=== PATIENT | male | born 1965 | race Caucasian/White ===

== ENCOUNTER → 2022-01-26 10:23 | Outpatient (CLI) | payer OTHER, SELFPAY ==
[2022-01-26 11:38] LABS: COVID19 -Nasal RAPID Negative (Negative)
== END ==
PROVIDERS: Visit Provider Family Medicine Sleep Medicine
DX: Z20.822 Contact with and (suspected) exposure to COVID-19 (principal)
CPT/HCPCS: 87635; C9803

== ENCOUNTER 2022-01-29 08:44 | Day surgery (SDC) | payer OTHER, SELFPAY ==
[2022-01-29 09:36] VITALS: BP 147/82; PULSE 59; RESP 16; TEMP 36; O2SAT 98
[2022-01-29] MEDS: SODIUM CHLORIDE 0.9% 1,000 ML 84 ML IV (09:38)
--- NOTE | 2022-01-29 10:26 | PM.HP.1 ---
History of Present Illness History of Present Illness Date Patient Seen: 01/29/22 Time Patient Seen: 10:26 Chief complaint: SDC Narrative: Here for colon cancer screening. I reviewed the note from Dr. Maynard. No changes Patient History Medical History Heartburn Rotator cuff arthropathy of right shoulder Surgical History History of lumbar surgery Family & Social History Social History: household members spouse Tobacco & Substance use: Smoking Status Never smoker alcohol intake current alcohol intake frequency holiday/special occasion Substance Use Type does not use Meds Home Medications and Allergies Home Medications Medication Instructions Recorded Confirmed Type acetaminophen 325 mg tablet 325 mg PO Q6H PRN 01/29/22 01/29/22 History ibuprofen 600 mg tablet 600 mg PO Q6H PRN 01/29/22 01/29/22 History Allergies Allergy/AdvReac Type Severity Reaction Status Date / Time No Known Drug Allergies Allergy Verified 01/29/22 09:12 Review of Systems Review of Systems ROS: Yes All systems reviewed with the patient and are negative except as otherwise documented Exam Vital Signs (past 8 hours): - 01/29/22 09:36 Temperature 96.8 F L Pulse Rate 59 L Respiratory Rate 16 Blood Pressure 147/82 H Pulse Oximetry 98 Oxygen Delivery Method Room Air Const General: cooperative and comfortable Orientation: alert HENMT Head: normocephalic Ears: external ears normal Nose: external nose normal Face and sinus: normal facial exam Mouth: oral mucosae normal Eyes General: appearance normal, both eyes and all related structures Neck Neck: normal visual inspection Chest Chest: normal inspection of the chest Resp Effort & Inspection: normal respiratory effort Cardio Rate: regular rate GI Inspection: normal to inspection Skin General: no rashes or lesions noted and No jaundice Neuro General: patient alert and moves all extremities Cognition: normal cognition Speech: speech normal Extrem General: no pedal edema Psych Appearance: grossly normal Assessment & Plan Assessment & Plan narrative: 56-year-old male indicated for colon cancer screening. Colonoscopy is pursued today. Time Spent With Patient Critical Care time: I spent a total of [] minutes of critical care time on this patient's care today; this time is exclusive of procedural time.
--- NOTE | 2022-01-29 10:28 | PM.PREOP ---
Pre-operative Note COVID-19 COVID-19 status: Negative Result date/Date tested (Pos, Neg/Pending): 01/26/22 Criteria for continued procedure: Possibility delay results in more complex future surgery or treatment Interval Note History & Physical reviewed/Exam performed by Physician: Yes Changes to H&P: No ASA Class (for procedural sedation): I
--- NOTE | 2022-01-29 11:35 | PM.OP.COLON ---
Operative Date/Time/Diagnoses Date of procedure: 01/29/22 Time of procedure: 11:36 Pre-op diagnosis: Colon cancer screening Post-op diagnosis: same Procedure & Clinicians Study performed: Colonoscopy Same procedure as scheduled: Yes Indications: Colon cancer screening Surgeon: Heber Ramos Procedure Notes SCOAP/Timeout: Done Procedure in detail: After the risks and benefits were explained, written and verbal informed consent was obtained. The patient was brought into the procedure room and placed into the left lateral decubitus position. Please see nurse supervisor electronics testing note for sedation details. Digital rectal examination was accomplished. The scope was introduced into the patient and advanced under direct visualization to the cecum as identified by the appendiceal orifice and ileocecal valve. The scope was slowly withdrawn to carefully examine the mucosa for any defects or lesions. Comprehensive imaging was accomplished throughout the rectum including the dentate line. The colon was decompressed, the scope was then removed from the patient who tolerated the procedure well. Bowel prep adequate Adult colonoscope Scope withdrawal time: 8 minutes Sedation minutes: 20 Specimen(s): none sent Complications: none Impression: No significant polyps mass lesions or inflammatory features identified throughout. Endoscopic diagnosis Visually normal colonoscopy Post-procedure Recommendations: Colonoscopy in 10 years Plan for aftercare: Repeat colonoscopy 10 years time; sooner should symptoms warrant an earlier exam. Disposition: PACU
[2022-01-29 11:37] VITALS: BP 115/85; PULSE 82; RESP 16; TEMP 36.6; O2SAT 99
[2022-01-29 11:42] VITALS: BP 122/84; PULSE 81; RESP 16; O2SAT 99
--- NOTE | 2022-01-29 11:46 | SUR.PHASEI ---
Stable pacu stay.
[2022-01-29 11:48] VITALS: BP 136/87; PULSE 66; RESP 14; TEMP 36.8; O2SAT 96
[2022-01-29 11:53] VITALS: BP 127/87; PULSE 61; RESP 16; TEMP 36.8; O2SAT 99
== END 2022-01-29 12:10 | disposition home or self-care (01) ==
PROVIDERS: PCP Student in an Organized Health Care Education/Training Program; Referring Provider Internal Medicine Gastroenterology; Visit Provider Internal Medicine Gastroenterology
PROC: 0DJD8ZZ Inspection of Lower Intestinal Tract, Via Natural or Artificial Opening Endoscopic (ICD-10-PCS; CPT 45378; principal; 2022-01-29 10:00)
DX: Z12.11 Encounter for screening for malignant neoplasm of colon (principal)
CPT/HCPCS: 45378; J2704

== ENCOUNTER 2022-02-11 11:32 | Inpatient (IN) | payer OTHER, SELFPAY ==
[2022-02-11] VITALS (17 sets, daily range): BP systolic 113–163; BP diastolic 62–94; PULSE 72–95; RESP 7–23; TEMP 36.1–37.2; O2SAT 96–100; BMI 30.8
--- NOTE | 2022-02-11 | DI.RAD.S_ITS ---
PROCEDURE: XR SHOULDER LT MIN 2V INDICATIONS: TRAUMA TECHNIQUE: 2 views of the shoulder were acquired. COMPARISON: [facility], CT, CT CHEST ABD PEL W CON, 02/11/2022, 12:26. [facility], CR, XR HUMERUS LT 2V, 02/11/2022, 12:19. FINDINGS: Bones: There is a moderately displaced, impacted fracture of the left humeral neck. There is a prominently displaced, impacted, angulated fracture of the left humeral mid shaft. No additional fractures are detected. The visualized ribs appear intact. No dislocations. No suspicious bony lesions. Visualized ribs appear intact. Soft tissues: No suspicious soft tissue calcifications. The visualized lung demonstrates an unremarkable appearance. IMPRESSION: Moderately displaced, impacted fracture of the left humeral neck. Prominently displaced, comminuted, angulated fracture of the left humeral mid shaft. Dictated by: Matias Kuhn M.D. on 02/11/2022 at 11:58 Approved by: Matias Kuhn M.D. on 02/11/2022 at 11:59
--- NOTE | 2022-02-11 11:54 | ED_ITS ---
HPI - General Adult General Chief complaint: Trauma Stated complaint: fell off ladder Time Seen by Provider: 02/11/22 11:51 Source: patient Mode of arrival: Ambulatory History of Present Illness HPI narrative: 56-year-old male who arrived to the emergency department by private vehicle for evaluation of injuries that he sustained when he fell approximately 15 ft off of a ladder. He did hurt his left arm. Sore short appeared of time he did have left hip discomfort but this has improved. He did not lose conscious. Did not hit his head. Said deformity to his left arm. Was able to stand up and walk back into the house afterwards. He is not on blood thinners. Currently reports pain in his left arm and also in his midback. Cervical collar was placed on triage. He reports no chest pain. No shortness of breath. No abdominal pain. No dental pain. No vision changes. No current hip pain. No leg pain. Related Data Home Medications Medication Instructions Recorded Confirmed acetaminophen 325 mg tablet 325 mg PO Q6H PRN 01/29/22 02/11/22 ibuprofen 600 mg tablet 600 mg PO Q6H PRN 01/29/22 02/11/22 Allergies Allergy/AdvReac Type Severity Reaction Status Date / Time No Known Drug Allergies Allergy Verified 01/29/22 09:12 Review of Systems Review of Systems ROS Unobtainable: All systems reviewed & are unremarkable except as noted in HPI and below Patient History Medical History Heartburn Rotator cuff arthropathy of right shoulder Surgical History History of lumbar surgery Social History household members: spouse Smoking Status: Never smoker alcohol intake: current Smoking Status: Never smoker alcohol intake frequency: holidays/special occasions only Substance Use Type: does not use Exam Initial Vital Signs Initial Vital Signs: Vital Signs Temperature 98.7 F 02/11/22 11:35 Pulse Rate 90 02/11/22 11:35 Respiratory Rate 20 02/11/22 11:35 Blood Pressure 163/94 H 02/11/22 11:35 Pulse Oximetry 100 02/11/22 11:35 Const General: healthy appearing, well developed and No ill appearing HENAZ Head: normal to inspection and normocephalic Face and sinus: normal facial exam Mouth: oral mucosae normal Eyes Pupils: PERRL EOM: EOM intact bilaterally Chest Chest: No crepitus and No tenderness Resp Effort & Inspection: normal respiratory effort Auscultation: clear to auscultation bilaterally Cardio Rate: regular rate Rhythm: regular rhythm GI Inspection: normal to inspection Palpation: soft and No tender Back/Spine/Pelvis Cervical Spine: cervical spinal tenderness Thoracic/Lumbar Spine: thoracic spinal tenderness and No lumbar spinal tenderness Skin General: no rashes or lesions noted Neuro General: patient alert, patient awake and patient oriented x3 Extrem Other: Pelvis is stable. Right upper extremity is unremarkable. Bilateral lower extremities unremarkable. Has obvious deformity to mid shaft left humerus. He has left wrist is unremarkable. Psych Appearance: grossly normal and well kempt Procedures Orthopedic Splinting/Casting Injury #1: Side: left Upper Extremity Injury Location: upper arm Upper Extremity Immobilizer: sugar tong splint Post splinting neuro exam: no change Post splinting vascular exam: no change Placed by: Nursing Scores GCS [place] coma scale eye opening: Spontaneous [place] coma scale verbal response: Orientated [place] coma scale motor response: Obey commands [place] coma scale total score: 15 Course Orders Ordered: ED Orders 02/11/22 11:52 Basic Metabolic Panel Stat Complete Blood Count AUTO DIFF Stat Lipase Stat 02/11/22 11:57 CT cervical spine wo con Stat CT chest abd pel w con Stat CT head/brain wo con Stat 02/11/22 11:58 XR humerus LT 2V Stat 02/11/22 13:08 Consult to Orthopedic Surgery Stat 02/11/22 13:15 CT UE LT wo con Stat 02/11/22 14:50 COVID19 -Nasal RAPID/Pre-Proc Stat Acetaminophen (Acetaminophen 325 Mg Tablet) 650 mg PO Q6HR PRN PRN Reason: pain Cyclobenzaprine HCl (Cyclobenzaprine 10 Mg Tablet) 10 mg PO Q8HR PRN PRN Reason: Spasms Enoxaparin Sodium (Enoxaparin 40 Mg/0.4 Ml Syringe) 40 mg SUBCUT DAILY BETO Hydromorphone HCl (Hydromorphone 0.5 Mg Inj) 1 mg IV Q3H PRN PRN Reason: Breakthrough pain only (8-10) Last Admin: 02/11/22 18:21 Dose: 1 mg Documented by: PHYLLIS Ibuprofen (Ibuprofen 600 Mg Tablet) 600 mg PO Q6HR PRN PRN Reason: pain Naloxone HCl (Naloxone 0.4 Mg/Ml Vial) 0.2 mg IV Q2MIN PRN PRN Reason: Opiate Reversal Ondansetron HCl (Ondansetron 4 Mg/2 Ml Inj) 4 mg IV Q8HR PRN PRN Reason: Nausea And Vomiting Last Admin: 02/11/22 18:12 Dose: 4 mg Documented by: PHYLLIS Oxycodone HCl (Oxycodone Ir 5 Mg Tablet) 5 mg PO Q4HR PRN PRN Reason: Pain, Moderate (4-6) Last Admin: 02/11/22 16:39 Dose: 5 mg Documented by: PHYLLIS Discontinued Medications Hydromorphone HCl (Hydromorphone 1 Mg Inj) 1 mg IV NOW ONE Stop: 02/11/22 12:36 Last Admin: 02/11/22 12:40 Dose: 1 mg Documented by: NATI Hydromorphone HCl (Hydromorphone 0.5 Mg Inj) 0.5 mg IV Q4H PRN PRN Reason: Breakthrough pain only (8-10) Morphine Sulfate (Morphine 4 Mg/Ml Inj) 4 mg IV NOW ONE Stop: 02/11/22 11:56 Last Admin: 02/11/22 12:03 Dose: 4 mg Documented by: NATI Morphine Sulfate (Morphine 4 Mg/Ml Inj) 4 mg IV NOW ONE Stop: 02/11/22 12:11 Last Admin: 02/11/22 12:25 Dose: 4 mg Documented by: NATI Ondansetron HCl (Ondansetron 4 Mg/2 Ml Inj) 4 mg IV NOW ONE Stop: 02/11/22 11:56 Last Admin: 02/11/22 12:03 Dose: 4 mg Documented by: NATI Ondansetron HCl (Ondansetron 4 Mg/2 Ml Inj) 4 mg IV NOW ONE Stop: 02/11/22 13:10 Last Admin: 02/11/22 13:15 Dose: 4 mg Documented by: NATI Vital Signs Vital signs: Vital Signs - 8 hr 02/11/22 11:35 02/11/22 12:16 02/11/22 12:46 Temperature 98.7 F Pulse Rate 90 94 H 90 Respiratory Rate 20 23 Blood Pressure 163/94 H Pulse Oximetry 100 100 100 02/11/22 12:47 02/11/22 13:00 02/11/22 13:15 Temperature Pulse Rate 89 83 94 H Respiratory Rate 12 10 L 13 Blood Pressure 131/71 119/65 125/78 Pulse Oximetry 100 99 100 02/11/22 13:41 02/11/22 13:42 02/11/22 13:45 Temperature Pulse Rate 84 86 80 Respiratory Rate 13 17 8 L Blood Pressure 116/64 116/63 Pulse Oximetry 100 100 99 02/11/22 14:00 02/11/22 14:15 Temperature Pulse Rate 91 H 95 H Respiratory Rate 13 12 Blood Pressure 119/62 121/66 Pulse Oximetry 98 99 Medical Decision Making Lab Data Lab results reviewed: Yes I reviewed the patient's lab results. Result diagrams: 02/11/22 11:52 02/11/22 11:52 Labs: Lab Results 02/11/22 02/11/22 Range/Units 11:52 11:52 WBC 8.5 (4.5-11.0) X10^3/uL RBC 4.89 (4.5-5.9) X10^6/uL Hgb 15.3 (13.5-17.5) g/dL Hct 44.7 (41-53) % MCV 91.5 (80-100) fL MCH 31.3 (26-34) PG MCHC 34.2 (30-36) % RDW 12.8 (11.6-14.8) % Plt Count 250 (150-400) X10^3/uL Neut % (Auto) 52.5 (50-75) % Lymph % (Auto) 40.5 H (25-40) % [place] % (Auto) 5.8 (3-14) % Eos % (Auto) 0.6 L (2-4) % Baso % (Auto) 0.6 (0-2) % Neut # (Auto) 4500 (8262-7111) /uL Lymph # (Auto) 3500 (5893-2950) /uL [place] # (Auto) 500 (0-900) /uL Eos # (Auto) 100 (0-450) /uL Baso # (Auto) 0 (0-100) /uL Sodium 141 (137-145) mmol/L Potassium 3.3 L (3.4-5.1) mmol/L Chloride 104 (98-107) mmol/L Carbon Dioxide 21 L (22-32) mmol/L BUN 19 (9-20) mg/dL Creatinine 1.14 (0.66-1.25) mg/dL Estimated GFR > 60 (>60) mL/min BUN/Creatinine Ratio 16.7 (6-22) Glucose 164 H (70-100) mg/dL Calcium 9.7 (8.4-10.2) mg/dL Lipase 138 (23-300) U/L Imaging Data CT chest/abd/pelvis: Radiologist's Impression: [address] [address] [address] Scan Report Signed Patient: Serjio Aguirre MR#: [id number] : 1965 Acct:[id number] Age/Sex: 56 / M Date of Service: 02/11/22 Loc: ED Accession Number: [id number] ?? Procedure: CT chest abd pel w con Ordering Provider: Олег Morgan D.O. PROCEDURE:? CT CHEST ABD PEL W CON ? INDICATIONS:? fall 15 feet off ladder with mid thoracic back pain ? TECHNIQUE:? After the administration of intravenous contrast, 5 mm thick sections acquired from the lung apices to the symphysis.? 2.5 mm thick coronal and sagittal reformats were acquired. ?Additional 7 mm thick coronal maximum intensity projection (MIP) reformats acquired through the lungs.? Optional 10-minute delayed imaging may be performed from the kidneys to the bladder.? For radiation dose reduction, the following was used:? automated exposure control, adjustment of mA and/or kV according to patient size.? ? COMPARISON:? [facility], CR, XR SHOULDER LT MIN 2V, 02/11/2022, 12:27.? [facility], CT, CT CERVICAL SPINE WO CON, 02/11/2022, 12:26.? [facility], CT, CT HEAD/BRAIN WO CON, 02/11/2022, 12:26. ? FINDINGS:? Image quality:? There is streak artifact seen through the upper abdomen. ? CHEST:? Lungs:? No pulmonary contusions or lacerations.? No acute airspace opacities.? No pneumothorax or hemothorax.? Central and peripheral airways appear patent and normal in caliber.? ? Mediastinum:? No mediastinal hematomas.? Heart size is normal.? No pericardial effusion.? Thoracic aorta and pulmonary arteries demonstrate normal size and enhancement.? No mediastinal or hilar adenopathy.? Esophagus is normal in caliber.? No hiatal hernia.? ? Chest wall:? There is partial visualization of an impacted left humeral neck fracture. ? No rib fractures.? No subcutaneous emphysema.? No axillary or supraclavicular ad enopathy. ?Thyroid gland demonstrates no significant abnormality.? ? ? ABDOMEN:? Solid organs:? Liver is normal in size and enhancement, without lacerations.? Diffuse fatty liver infiltration is noted.? Gallbladder wall is not thickened.? Biliary system is non-dilated.? Pancreas enhances normally, without transection.? Spleen is normal in size and enhancement, without lacerations.? No adrenal hematomas.? Both kidneys enhance normally, without hydronephrosis or lacerations.? Within the mid right kidney, there is a lesion seen that measures 20 Hounsfield units and 1.6 cm. ? Peritoneum and bowel:? No free fluid or air.? Unenhanced bowel loops demonstrate normal wall thickness and caliber.? Fatty stranding can be seen within the mesentery, as on series 2, image 92. ? Nodes and vessels:? No retroperitoneal or mesenteric adenopathy.? Borderline prominent mesenteric lymph nodes are seen.? Aorta and inferior vena cava are normal in size and enhancement.? ? Miscellaneous:? No ventral hernias.? ? ? PELVIS:? Genitourinary:? Bladder wall thickness is normal.? ? Miscellaneous:? No inguinal hernias or adenopathy.? ? Bones:? Pelvic ring and hip joints appear intact.? No vertebral compression frac tures.? L4-L5 and L5-S1 artificial discs have been previously placed, without findings of failure or loosening. ? ? IMPRESSION:? Left humeral neck fracture. ? No additional bony fracture can be seen. ? No solid organ injury is identified. ? Mesenteric fatty stranding and borderline prominent mesenteric lymph nodes are seen.? This is nonspecific, although is attributed to chronic inflammatory change. ? Within the mid right kidney, there is a likely hyperdense cyst seen measuring up to 1.6 cm.? Please consider a follow-up renal ultrasound for further evaluation/confirmation. ? ? Incidental note is made of: Fatty liver infiltration Lower lumbar spine artificial discs ? Dictated by: Matias Kuhn M.D. on 02/11/2022 at 11:50 ? ? Approved by: Matias Kuhn M.D. on 02/11/2022 at 11:56? CT - cervical spine: Radiologist's Impression: [place] [address] CT Scan Report Signed Patient: Serjio Aguirre MR#: [id number] : 1965 Acct:[id number] Age/Sex: 56 / M Date of Service: 02/11/22 Loc: ED Accession Number: [id number] ?? Procedure: CT cervical spine wo con Ordering Provider: Олег Morgan D.O. PROCEDURE:? CT CERVICAL SPINE WO CON ? INDICATIONS:? fall 15 feet off ladder ? TECHNIQUE:? Noncontrast 3 mm thick sections acquired from the skull base to the T4 level.? Sagittal and coronal reformats were then constructed.? For radiation dose reduction, the following was used:? automated exposure control, adjustment of mA and/or kV according to patient size.? ? COMPARISON:? [facility], CT, CT CHEST ABD PEL W CON, 02/11/2022, 12:26.? [facility], CT, CT HEAD/BRAIN WO CON, 02/11/2022, 12:26. ? FINDINGS:? Image quality:? This examination is somewhat limited by quantum mottle artifact.? ? Bones:? No fractures or dislocations.? Visualized superior ribs are intact. ? Focal C5-C6 degenerative change is seen, with [id number] disc space narrowing with associated endplate irregularity and sclerosis.? Focal calcification is seen posterior to disc level, with moderate central canal narrowing.? Milder degenerative changes are seen elsewhere.? ? ? Soft tissues:? Prevertebral soft tissues are normal in thickness.? No paravertebral hematomas.? No apical pneumothoraces.? ? ? IMPRESSION:? Negative for acute fracture. ? Focal C5-C6 degenerative change. ? ? ? Dictated by: Matias Kuhn M.D. on 02/11/2022 at 11:49 ? ? Approved by: Matias Kuhn M.D. on 02/11/2022 at 11:50 CT scan - head: Radiologist's Impression: [address] [address] [address] Scan Report Signed Patient: Serjio Aguirre MR#: [id number] : 1965 Acct:[id number] Age/Sex: 56 / M Date of Service: 02/11/22 Loc: ED Accession Number: [id number] ?? Procedure: CT head/brain wo con Ordering Provider: Олег Morgan D.O. PROCEDURE:? CT HEAD/BRAIN WO CON ? INDICATIONS:? fall 15 feet off ladder ? TECHNIQUE:? Noncontrast 4.5 mm thick angled axial sections acquired from the foramen magnum to the vertex, with coronal and sagittal reformats.? For radiation dose reduction, the following was used:? automated exposure control, adjustment of mA and/or kV according to patient size.? ? COMPARISON:? [facility], CT, CT CERVICAL SPINE WO CON, 02/11/2022, 12:26. ? FINDINGS:? Image quality:? Excellent.? ? CSF spaces:? Basal cisterns are patent.? No extra-axial fluid collections.? Ventricles are normal in size and shape.? ? Brain:? No midline shift.? No intracranial masses or hemorrhage.? Frost-white matter interface is normal.? ? Skull and face:? Calvarium and visualized facial bones are intact, without s uspicious lesions.? ? Sinuses:? Visualized sinuses and mastoids are clear.? IMPRESSION:? No acute intracranial hemorrhage is seen.? ? No acute intracranial process is seen.? ? ? Dictated by: Matias Kuhn M.D. on 02/11/2022 at 11:47 ? ? Approved by: Matias Kuhn M.D. on 02/11/2022 at 11:48 Extremity x-ray #1: Radiologist's Impression: [address] [address] XRay Report Signed Patient: Serjio Aguirre MR#: [id number] : 1965 Acct:[id number] Age/Sex: 56 / M Date of Service: 02/11/22 Loc: ED Accession Number: [id number] ?? Procedure: XR humerus LT 2V Ordering Provider: Олег Morgan D.O. PROCEDURE:? XR HUMERUS LT 2V ? INDICATIONS:? fall off ladder with mid shaft deformity ? TECHNIQUE:? 2 views of the humerus were acquired.? ? COMPARISON:? [facility], CR, XR SHOULDER LT MIN 2V, 02/11/2022, 12:27.? [facility], CT, CT CHEST ABD PEL W CON, 02/11/2022, 12:26. ? FINDINGS:? ? Bones:? There is a prominently displaced comminuted fracture of the left humeral mid shaft, with moderate angulation.? There is also a moderately displaced left humeral neck fracture, with impaction. ? No dislocation is seen. ? Soft tissues:? Soft tissue swelling is seen. ? ? ? IMPRESSION:? There is a prominently displaced, comminuted, angulated fracture of the humeral mid shaft. ? An additional moderately displaced impacted fracture of the left humeral neck can be seen. ? ? Dictated by: Matias Kuhn M.D. on 02/11/2022 at 11:56 ? ? Approved by: Matias Kuhn M.D. on 02/11/2022 at 11:58?? CT UE: Radiologist's Impression: [place] [address] CT Scan Report Signed Patient: Serjio Aguirre MR#: [id number] : 1965 Acct:[id number] Age/Sex: 56 / M Date of Service: 02/11/22 Loc: ED Accession Number: [id number] ?? Procedure: CT UE LT wo con Ordering Provider: Олег Morgan D.O. PROCEDURE:? CT UE LT WO CON ? INDICATIONS:? Shoulder and humerus fracture ortho requested CT ? TECHNIQUE:? Noncontrast 1-1.5 mm thick sections acquired from the acromioclavicular joint to the inferior scapula, with coronal and sagittal reformatting.? ? COMPARISON:? [facility], CR, XR SHOULDER LT MIN 2V, 02/11/2022, 12:27. ? FINDINGS:? Image quality:? Excellent.? ? Bones:? As seen by plain film, there is a moderately displaced and angulated fracture of the mid humeral shaft.? Additionally, there is a mildly displaced comminuted fracture of the humeral head and neck ? Soft tissues:? Grossly unremarkable? ? IMPRESSION:? Humeral fractures as above. ? ? Dictated by: Andrew Walls M.D. on 02/11/2022 at 13:57 ? ? Approved by: Andrew Walls M.D. on 02/11/2022 at 13:58? MDM Narrative Medical decision making narrative: Patient fell 15 ft from a ladder. Obvious deformity to the left humerus and does have a midshaft humeral fracture. Also has a left proximal humerus fracture. Rest of his radiologic studies and exam is unremarkable. Patient not hypotensive. Alert oriented x3. Neurovascularly intact in left upper extremity. He was placed in a splint for comfort. Discussed the case with Dr. Alvarado orthopedic surgery who recommended patient be admitted to medicine service. Discussed case Dr. Bhatti who will admit for further evaluation treatment. I did discuss the findings of the CT scans with the patient the need for admission. He expressed understanding and agreement. Critical Care Time Critical Care Time Critical Care Time: Yes Total Critical Care Time: 35 Attestation: The high probability of a clinically significant, sudden or life threatening deterioration of the neurologic, cardiovascular, musculoskeletal system(s) required my full and direct attention, intervention and personal management. The aggregate critical care time was [30] minutes. This time is in addition to time spent performing reported procedures but includes the following: [x] Data Review and interpretation [x] Patient assessment and monitoring of vital signs [x] Documentation [x] Medication orders and management Discharge Plan Departure Patient Disposition: Admitted As Inpatient Clinical Impression: Closed fracture of left proximal humerus, Closed fracture of shaft of left humerus Admit Date/Time: 02/11/22 14:27 Admit Provider: Bryan Bhatti
--- NOTE | 2022-02-11 11:57 | DI.CT.S_ITS ---
PROCEDURE: CT CHEST ABD PEL W CON INDICATIONS: fall 15 feet off ladder with mid thoracic back pain TECHNIQUE: After the administration of intravenous contrast, 5 mm thick sections acquired from the lung apices to the symphysis. 2.5 mm thick coronal and sagittal reformats were acquired. Additional 7 mm thick coronal maximum intensity projection (MIP) reformats acquired through the lungs. Optional 10-minute delayed imaging may be performed from the kidneys to the bladder. For radiation dose reduction, the following was used: automated exposure control, adjustment of mA and/or kV according to patient size. COMPARISON: [facility], CR, XR SHOULDER LT MIN 2V, 02/11/2022, 12:27. [facility], CT, CT CERVICAL SPINE WO CON, 02/11/2022, 12:26. [facility], CT, CT HEAD/BRAIN WO CON, 02/11/2022, 12:26. FINDINGS: Image quality: There is streak artifact seen through the upper abdomen. CHEST: Lungs: No pulmonary contusions or lacerations. No acute airspace opacities. No pneumothorax or hemothorax. Central and peripheral airways appear patent and normal in caliber. Mediastinum: No mediastinal hematomas. Heart size is normal. No pericardial effusion. Thoracic aorta and pulmonary arteries demonstrate normal size and enhancement. No mediastinal or hilar adenopathy. Esophagus is normal in caliber. No hiatal hernia. Chest wall: There is partial visualization of an impacted left humeral neck fracture. No rib fractures. No subcutaneous emphysema. No axillary or supraclavicular adenopathy. Thyroid gland demonstrates no significant abnormality. ABDOMEN: Solid organs: Liver is normal in size and enhancement, without lacerations. Diffuse fatty liver infiltration is noted. Gallbladder wall is not thickened. Biliary system is non-dilated. Pancreas enhances normally, without transection. Spleen is normal in size and enhancement, without lacerations. No adrenal hematomas. Both kidneys enhance normally, without hydronephrosis or lacerations. Within the mid right kidney, there is a lesion seen that measures 20 Hounsfield units and 1.6 cm. Peritoneum and bowel: No free fluid or air. Unenhanced bowel loops demonstrate normal wall thickness and caliber. Fatty stranding can be seen within the mesentery, as on series 2, image 92. Nodes and vessels: No retroperitoneal or mesenteric adenopathy. Borderline prominent mesenteric lymph nodes are seen. Aorta and inferior vena cava are normal in size and enhancement. Miscellaneous: No ventral hernias. PELVIS: Genitourinary: Bladder wall thickness is normal. Miscellaneous: No inguinal hernias or adenopathy. Bones: Pelvic ring and hip joints appear intact. No vertebral compression fractures. L4-L5 and L5-S1 artificial discs have been previously placed, without findings of failure or loosening. IMPRESSION: Left humeral neck fracture. No additional bony fracture can be seen. No solid organ injury is identified. Mesenteric fatty stranding and borderline prominent mesenteric lymph nodes are seen. This is nonspecific, although is attributed to chronic inflammatory change. Within the mid right kidney, there is a likely hyperdense cyst seen measuring up to 1.6 cm. Please consider a follow-up renal ultrasound for further evaluation/confirmation. Incidental note is made of: Fatty liver infiltration Lower lumbar spine artificial discs Dictated by: Matias Kuhn M.D. on 02/11/2022 at 11:50 Approved by: Matias Kuhn M.D. on 02/11/2022 at 11:56
--- NOTE | 2022-02-11 11:57 | DI.CT.S_ITS ---
PROCEDURE: CT HEAD/BRAIN WO CON INDICATIONS: fall 15 feet off ladder TECHNIQUE: Noncontrast 4.5 mm thick angled axial sections acquired from the foramen magnum to the vertex, with coronal and sagittal reformats. For radiation dose reduction, the following was used: automated exposure control, adjustment of mA and/or kV according to patient size. COMPARISON: [facility], CT, CT CERVICAL SPINE WO CON, 02/11/2022, 12:26. FINDINGS: Image quality: Excellent. CSF spaces: Basal cisterns are patent. No extra-axial fluid collections. Ventricles are normal in size and shape. Brain: No midline shift. No intracranial masses or hemorrhage. Frost-white matter interface is normal. Skull and face: Calvarium and visualized facial bones are intact, without suspicious lesions. Sinuses: Visualized sinuses and mastoids are clear. IMPRESSION: No acute intracranial hemorrhage is seen. No acute intracranial process is seen. Dictated by: Matias Kuhn M.D. on 02/11/2022 at 11:47 Approved by: Matias Kuhn M.D. on 02/11/2022 at 11:48
--- NOTE | 2022-02-11 11:57 | DI.CT.S_ITS ---
PROCEDURE: CT CERVICAL SPINE WO CON INDICATIONS: fall 15 feet off ladder TECHNIQUE: Noncontrast 3 mm thick sections acquired from the skull base to the T4 level. Sagittal and coronal reformats were then constructed. For radiation dose reduction, the following was used: automated exposure control, adjustment of mA and/or kV according to patient size. COMPARISON: [facility], CT, CT CHEST ABD PEL W CON, 02/11/2022, 12:26. [facility], CT, CT HEAD/BRAIN WO CON, 02/11/2022, 12:26. FINDINGS: Image quality: This examination is somewhat limited by quantum mottle artifact. Bones: No fractures or dislocations. Visualized superior ribs are intact. Focal C5-C6 degenerative change is seen, with [id number]-hg-[id number] disc space narrowing with associated endplate irregularity and sclerosis. Focal calcification is seen posterior to disc level, with moderate central canal narrowing. Milder degenerative changes are seen elsewhere. Soft tissues: Prevertebral soft tissues are normal in thickness. No paravertebral hematomas. No apical pneumothoraces. IMPRESSION: Negative for acute fracture. Focal C5-C6 degenerative change. Dictated by: Matias Kuhn M.D. on 02/11/2022 at 11:49 Approved by: Matias Kuhn M.D. on 02/11/2022 at 11:50
--- NOTE | 2022-02-11 11:58 | DI.RAD.S_ITS ---
PROCEDURE: XR HUMERUS LT 2V INDICATIONS: fall off ladder with mid shaft deformity TECHNIQUE: 2 views of the humerus were acquired. COMPARISON: [facility], CR, XR SHOULDER LT MIN 2V, 02/11/2022, 12:27. [facility], CT, CT CHEST ABD PEL W CON, 02/11/2022, 12:26. FINDINGS: Bones: There is a prominently displaced comminuted fracture of the left humeral mid shaft, with moderate angulation. There is also a moderately displaced left humeral neck fracture, with impaction. No dislocation is seen. Soft tissues: Soft tissue swelling is seen. IMPRESSION: There is a prominently displaced, comminuted, angulated fracture of the humeral mid shaft. An additional moderately displaced impacted fracture of the left humeral neck can be seen. Dictated by: Matias Kuhn M.D. on 02/11/2022 at 11:56 Approved by: Matias Kuhn M.D. on 02/11/2022 at 11:58
[2022-02-11] MEDS: ONDANSETRON 4 MG/2 ML INJ IV ×3 (12:03→18:12)
[2022-02-11] MEDS: MORPHINE 4 MG/ML INJ IV ×2 (12:03→12:25)
[2022-02-11 12:32] LABS: Add Manual Diff / Slide Review NO; Basophils Absolute Auto 0 /uL (0-100); Basophils Percent Auto 0.6 % (0-2); Eosinophils Absolute Auto 100 /uL (0-450); Eosinophils Percent Auto 0.6 % (2-4); Hematocrit 44.7 % (41-53); Hemoglobin 15.3 g/dL (13.5-17.5); Lymphocytes Absolute Auto 3500 /uL (1100-4500); Lymphocytes Percent Auto 40.5 % (25-40); Mean Corpuscular HGB Conc 34.2 % (30-36); Mean Corpuscular Hemoglobin 31.3 PG (26-34); Mean Corpuscular Volume 91.5 fL (80-100); Monocytes Absolute Auto 500 /uL (0-900); Monocytes Percent Auto 5.8 % (3-14); Neutrophils Absolute Auto 4500 /uL (1500-7000); Neutrophils Percent Auto 52.5 % (50-75); Platelet Count 250 X10^3/uL (150-400); Red Blood Cell Count 4.89 X10^6/uL (4.5-5.9); Red Cell Distribution Width 12.8 % (11.6-14.8); White Blood Cell Count 8.5 X10^3/uL (4.5-11.0)
[2022-02-11] MEDS: HYDROMORPHONE 1 MG INJ IV (12:40)
[2022-02-11 12:46] LABS: BUN Creatinine Ratio 16.7 (6-22); Blood Urea Nitrogen 19 mg/dL (9-20); Calcium 9.7 mg/dL (8.4-10.2); Carbon Dioxide 21 mmol/L (22-32); Chloride 104 mmol/L (98-107); Estimated Glomerular Filt Rate > 60 mL/min (>60); Glucose 164 mg/dL (70-100); HEMOLYSIS 31 (0-50); Lipase 138 U/L (23-300); Potassium 3.3 mmol/L (3.4-5.1); Sodium 141 mmol/L (137-145)
--- NOTE | 2022-02-11 13:15 | DI.CT.S_ITS ---
PROCEDURE: CT UE LT WO CON INDICATIONS: Shoulder and humerus fracture ortho requested CT TECHNIQUE: Noncontrast 1-1.5 mm thick sections acquired from the acromioclavicular joint to the inferior scapula, with coronal and sagittal reformatting. COMPARISON: [facility], CR, XR SHOULDER LT MIN 2V, 02/11/2022, 12:27. FINDINGS: Image quality: Excellent. Bones: As seen by plain film, there is a moderately displaced and angulated fracture of the mid humeral shaft. Additionally, there is a mildly displaced comminuted fracture of the humeral head and neck Soft tissues: Grossly unremarkable IMPRESSION: Humeral fractures as above. Dictated by: Andrew Walls M.D. on 02/11/2022 at 13:57 Approved by: Andrew Walls M.D. on 02/11/2022 at 13:58
[2022-02-11 15:34] LABS: COVID19 -Nasal RAPID Negative (Negative)
[2022-02-11] MEDS: OXYCODONE IR 5 MG TABLET PO (16:39)
--- NOTE | 2022-02-11 18:10 | PM.HP.1 ---
History of Present Illness History of Present Illness Date Patient Seen: 02/11/22 Time Patient Seen: 17:30 Chief complaint: fell off ladder Narrative: Mr. Aguirre is a 56M with no significant PMH who presents after a fall from a ladder. He hurt his left arm. He did not hit his head or lose consciousness. He was able to stand and walk back to the house. He had some hip pain that has resolved. He also has mid back spasms located just to the right of the spine. In the ED workup was done, vitals notable for elevated blood pressure. He was placed in c-collar. Labs notable for WBC 8.5, hgb 15.3, creatinine 1.14. Imaging on his left arm showed two fractures of his humerus including proximal and mid humerus displaced fracture. CT abd/pelvis showed no acute process. CT head and CT c-spine showed no acute process. C-collar was removed. Orthopedic surgery was consulted. He was admitted for further treatment. PMH: none Family history: father with cirrhosis, mother brain cancer Patient History Medical History Heartburn Rotator cuff arthropathy of right shoulder Surgical History History of lumbar surgery Family & Social History Social History: household members spouse Prior Living Arrangements House Safety & Behavioral: Feels Safe in Current Yes Environment Been Physically Hurt or No Threatened By a Person Tobacco & Substance use: Smoking Status Never smoker alcohol intake current alcohol intake frequency holiday/special occasion Substance Use Type does not use Meds Home Medications and Allergies Home Medications Medication Instructions Recorded Confirmed Type acetaminophen 325 mg tablet 325 mg PO Q6H PRN 01/29/22 02/11/22 History ibuprofen 600 mg tablet 600 mg PO Q6H PRN 01/29/22 02/11/22 History Allergies Allergy/AdvReac Type Severity Reaction Status Date / Time No Known Drug Allergies Allergy Verified 01/29/22 09:12 Review of Systems Review of Systems Narrative: 14 systems reviewed and negative aside from what is noted in HPI Exam Vital Signs (past 8 hours): - 02/11/22 11:35 02/11/22 12:16 02/11/22 12:46 Temperature 98.7 F Pulse Rate 90 94 H 90 Respiratory Rate 20 23 Blood Pressure 163/94 H Pulse Oximetry 100 100 100 05/01/22 12:47 02/11/22 13:00 02/11/22 13:15 Temperature Pulse Rate 89 83 94 H Respiratory Rate 12 10 L 13 Blood Pressure 131/71 119/65 125/78 Pulse Oximetry 100 99 100 02/11/22 13:41 02/11/22 13:42 02/11/22 13:45 Temperature Pulse Rate 84 86 80 Respiratory Rate 13 17 8 L Blood Pressure 116/64 116/63 Pulse Oximetry 100 100 99 02/11/22 14:00 02/11/22 14:15 02/11/22 14:30 Temperature Pulse Rate 91 H 95 H 84 Respiratory Rate 13 12 7 L Blood Pressure 119/62 121/66 113/65 Pulse Oximetry 98 99 96 02/11/22 14:45 02/11/22 15:00 02/11/22 15:15 Temperature 98.9 F Pulse Rate 89 93 H 91 H Respiratory Rate 14 14 18 Blood Pressure 127/72 117/69 127/84 Pulse Oximetry 98 96 99 02/11/22 15:50 Temperature 98.9 F Pulse Rate 91 H Respiratory Rate Blood Pressure 127/84 Pulse Oximetry 99 Oxygen Delivery Method Room Air Oxygen Flow Rate 0 Narrative Exam Narrative: GEN: no acute distress HEENT: moist mucous membranes, PERRL NECK: trachea midline, no JVD CV: regular rate and rhythm, no murmurs PULM: clear bilaterally, no wheezes, rhonchi, rales ABD: soft, nontender, nondistended, no organomegaly, normal bowel sounds EXT: warm and well perfused, with no edema, left arm in cast Objective Labs Result Diagrams: 02/11/22 11:52 02/11/22 11:52 Labs: Laboratory Results - last 24 hr 02/11/22 02/11/22 02/11/22 11:52 11:52 14:50 WBC 8.5 RBC 4.89 Hgb 15.3 Hct 44.7 MCV 91.5 MCH 31.3 MCHC 34.2 RDW 12.8 Plt Count 250 Neut % (Auto) 52.5 Lymph % (Auto) 40.5 H [place] % (Auto) 5.8 Eos % (Auto) 0.6 L Baso % (Auto) 0.6 Neut # (Auto) 4500 Lymph # (Auto) 3500 [place] # (Auto) 500 Eos # (Auto) 100 Baso # (Auto) 0 Sodium 141 Potassium 3.3 L Chloride 104 Carbon Dioxide 21 L BUN 19 Creatinine 1.14 Estimated GFR > 60 BUN/Creatinine Ratio 16.7 Glucose 164 H Calcium 9.7 Lipase 138 SARS-CoV-2 (PCR) Negative Assessment & Plan Assessment & Plan narrative: Mr. Aguirre is a 56M with presents after a fall from a ladder found to have a proximal and mid-shaft humeral fracture. 1. Acute mid humeral fracture and comminuted humeral head/neck fracture -ordered for pain medications with IV/oral opiates, also with flexeril for muscle spasm -ordered for nausea medications -appreciate ortho consult -plan for surgery with timing per ortho -NPO after midnight 2. Back spasms -CT shows no evidence of spinal compression fracture -pain is lateral to spine, consistent with muscle spasm -flexeril as above 3. Renal cyst -noted on CT scan -follow up with PCP as outpatient CODE: Full Proxy: Nanda Aguirre, I have utilized all available resources to reconcile patients home medications Time Spent With Patient Critical Care time: I spent a total of [] minutes of critical care time on this patient's care today; this time is exclusive of procedural time. Quality MIPS - Admit I confirm the patient?s Advance Care Plan is present, Code status is documented, Surrogate decision maker is in patient?s record [If Yes, STOP here]: Yes
[2022-02-11] MEDS: HYDROMORPHONE 0.5 MG INJ 1 MG IV (18:21)
--- NOTE | 2022-02-11 19:36 | P.HP_ITS ---
History of Present Illness History of Present Illness Date Patient Seen: 02/11/22 Time Patient Seen: 19:40 Date of Onset of Symptoms: 02/11/22 Chief complaint: fell off ladder Narrative: This is a 56-year-old gentleman who fell off a ladder and landed on his left arm. He noted the acute onset of severe left shoulder and arm pain as well as some ongoing thoracic back pain. He is right-hand dominant. 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 Patient History Medical History Heartburn Rotator cuff arthropathy of right shoulder Surgical History History of lumbar surgery Family & Social History Social History: household members spouse Prior Living Arrangements House Safety & Behavioral: Feels Safe in Current Yes Environment Been Physically Hurt or No Threatened By a Person Tobacco & Substance use: Smoking Status Never smoker alcohol intake current alcohol intake frequency holiday/special occasion Substance Use Type does not use Meds Home Medications and Allergies Home Medications Medication Instructions Recorded Confirmed Type acetaminophen 325 mg tablet 325 mg PO Q6H PRN 01/29/22 02/11/22 History ibuprofen 600 mg tablet 600 mg PO Q6H PRN 01/29/22 02/11/22 History Allergies Allergy/AdvReac Type Severity Reaction Status Date / Time No Known Drug Allergies Allergy Verified 01/29/22 09:12 Review of Systems Review of Systems Narrative: He denies loss of consciousness, it does not note significant headache, he has some mild nausea which she associates with pain medication he does note significant left arm and shoulder pain, he is also having some moderate to sev ere right back pain which is predominantly on the right-hand side in the thoracic region he denies numbness in bilateral lower extremities notes some mild numbness in the left upper extremity Exam Vital Signs (past 8 hours): - 02/11/22 12:16 02/11/22 12:46 02/11/22 12:47 Temperature Pulse Rate 94 H 90 89 Respiratory Rate 23 12 Blood Pressure 131/71 Pulse Oximetry 100 100 100 02/11/22 13:00 02/11/22 13:15 02/11/22 13:41 Temperature Pulse Rate 83 94 H 84 Respiratory Rate 10 L 13 13 Blood Pressure 119/65 125/78 Pulse Oximetry 99 100 100 02/11/22 13:42 02/11/22 13:45 02/11/22 14:00 Temperature Pulse Rate 86 80 91 H Respiratory Rate 17 8 L 13 Blood Pressure 116/64 116/63 119/62 Pulse Oximetry 100 99 98 02/11/22 14:15 02/11/22 14:30 02/11/22 14:45 Temperature Pulse Rate 95 H 84 89 Respiratory Rate 12 7 L 14 Blood Pressure 121/66 113/65 127/72 Pulse Oximetry 99 96 98 02/11/22 15:00 02/11/22 15:15 02/11/22 15:50 Temperature 98.9 F 98.9 F Pulse Rate 93 H 91 H 91 H Respiratory Rate 14 18 Blood Pressure 117/69 127/84 127/84 Pulse Oximetry 96 99 99 Oxygen Delivery Method Room Air Oxygen Flow Rate 0 Narrative Exam Narrative: HEENT is benign he is alert he is oriented he is appropriate his neck is supple and mobile with no pain with range of motion he has tenderness in the midthoracic spine there is no palpable step-off, his chest is stable was nontender today anterior chest and sternum lungs are clear cor regular rate and rhythm abdomen slightly obese but benign pelvis is stable, bilateral lower extremities are unremarkable with good range of motion nontender the right upper extremity is good range of motion is nontender left upper extremity is remarkable for obvious swelling and deformity of the left humerus he can fire his finger flexors and extensors there is some numbness on the dorsum of his hand skins noted to be intact has fair range of motion in the wrist and hand Objective Labs Result Diagrams: 02/11/22 11:52 02/11/22 11:52 Labs: Laboratory Results - last 24 hr 02/11/22 02/11/22 02/11/22 11:52 11:52 14:50 WBC 8.5 RBC 4.89 Hgb 15.3 Hct 44.7 MCV 91.5 MCH 31.3 MCHC 34.2 RDW 12.8 Plt Count 250 Neut % (Auto) 52.5 Lymph % (Auto) 40.5 H [place] % (Auto) 5.8 Eos % (Auto) 0.6 L Baso % (Auto) 0.6 Neut # (Auto) 4500 Lymph # (Auto) 3500 [place] # (Auto) 500 Eos # (Auto) 100 Baso # (Auto) 0 Sodium 141 Potassium 3.3 L Chloride 104 Carbon Dioxide 21 L BUN 19 Creatinine 1.14 Estimated GFR > 60 BUN/Creatinine Ratio 16.7 Glucose 164 H Calcium 9.7 Lipase 138 SARS-CoV-2 (PCR) Negative X-rays show a comminuted left humerus fracture with a large butterfly in the mid section of the humerus and the slightly comminuted but minimally displaced proximal humerus fracture Assessment & Plan Assessment and plan (1) Closed fracture of left proximal humerus: Status: Acute (2) Closed fracture of shaft of left humerus: Status: Acute Assessment & Plan narrative: Comminuted left humerus fracture. It is a segmental fracture with a proximal fracture in the surgical neck and along the tuberosity. He also has a large butterfly out of his midshaft humerus fracture. I have recommended operative treatment with open reduction internal fixation. It is a complicated fracture which will require a fairly extensive plate. Option risks benefits and complications were discussed in detail including but not limited to neurological injury and concerns for the axillary as well as the radial nerve. Risk of infection, risk of bleeding and risk of humeral nonunion and/or delayed union requiring secondary operations and possibly even bone grafting were discussed in detail. We also discussed potential anesthetic complications. He also had a spraining injury to his thoracic spine. I reviewed his CT scan of his chest abdomen and pelvis with specific attention to the spine and did not see evidence of a significant fracture although it is not a dedicated CT scan. Neurologically he is not having lower extremity neurological symptoms. Plan to proceed with open reduction internal fixation tomorrow. Time Spent With Patient Critical Care time: I spent a total of [] minutes of critical care time on this patient's care today; this time is exclusive of procedural time.
[2022-02-12] VITALS (16 sets, daily range): BP systolic 114–134; BP diastolic 68–84; PULSE 65–91; RESP 12–19; TEMP 36–37.4; O2SAT 95–99; BMI 30.8
--- NOTE | 2022-02-12 | DI.RAD.S_ITS ---
PROCEDURE: XR HUMERUS LT 2V INDICATIONS: POST OP TECHNIQUE: 2 views of the humerus were acquired. COMPARISON: [facility], CR, XR HUMERUS LT 2V, 02/11/2022, 12:19. FINDINGS: Bones: There is improved alignment status post open reduction and internal fixation of the previously visualized comminuted fracture of the left humeral shaft. A fixation plate with multiple fixation screws are demonstrated. Soft tissues: There is associated soft tissue swelling with multiple skin teri. IMPRESSION: 1. Improved alignment status post ORIF of left humeral shaft fracture. Dictated by: Neftali Manning M.D. on 02/12/2022 at 23:10 Approved by: Neftali Manning M.D. on 02/12/2022 at 23:11
--- NOTE | 2022-02-12 | DI.RAD.S_ITS ---
PROCEDURE: XR HUMERUS LT 2V INDICATIONS: INTRA OP TECHNIQUE: To views of the humerus were acquired. COMPARISON: [facility], CR, XR HUMERUS LT 2V, 02/11/2022, 12:19. FINDINGS: Bones: Intraoperative images demonstrate postsurgical changes compatible with ORIF of segmented left humerus fracture. Orthopedic plate and screws have been placed for internal fixation. There is near anatomic alignment of major fracture fragments following ORIF. Soft tissues: No suspicious soft tissue calcifications. IMPRESSION: Expected postsurgical change for ORIF of left humerus fracture. Dictated by: Jenny Mack MD, PhD on 02/13/2022 at 7:17 Approved by: Jenny Mack MD, PhD on 02/13/2022 at 7:18
[2022-02-12] MEDS: OXYCODONE IR 5 MG TABLET PO (01:56)
[2022-02-12] MEDS: SODIUM CHLORIDE 0.9% FLUSH 10 ML IV (01:57)
[2022-02-12] MEDS: ONDANSETRON 4 MG/2 ML INJ IV (01:57)
--- NOTE | 2022-02-12 06:18 | PC.NURSE ---
Pt was vomiting undigested food after dilaudid 1 mg IV given. Pt was given oxycodone 5 mg tonight, along with 4 mg of IVP ondansetron. Pt NPO for surgery this am. will continue to monitor.
--- NOTE | 2022-02-12 09:38 | CM.DANOTE ---
Patient is a 56 yo male who was admitted on 02/11/22 for Fall off Ladder. Pt has [employer] for insurance and his PCP is Johan Rousseau. EMR was reviewed. Per MD, pt with 2 fxs on left arm. Per Ortho MD, pt to have open reduction internal fixation with plate. Per RN, pt scheduled for surgery today at 1415. SW met bedside with pt and explained role and he confirms he lives in [place] with his and both are active and independent and pt works at a [employer] and unfortunately was doing projects around the house and fell off his ladder. Pt denies any hx of HH or SNF or major hospitalizations. Pt states his spouse is working and can take some time off but they also have a young adult Dtr who is home and available W-F during the week and can assist. Pt does not anticipate any d/c needs and will have time off from work and likely could benefit from PT/OT eval and recommendations post surgery today. Plan: SW to follow after surgery this afternoon towards determining any d/c planning needs and confirm plan of home with spouse and Dtr. PALLAVI Ruth Discharge Planning/Care Management CM Discharge Assessment Start: 02/12/22 09:36 Freq: Status: Active Protocol: Document 02/12/22 09:36 BF (Rec: 02/12/22 09:38 [email or web address]) Discharge Planning Assessment Assigned Parks Worker PALLAVI Dennison DPOA/Assigned Designee Name informally spouse Nanda Contact Information [phone] Advance Directives? No Advance Directives on File No History Provided By Patient,Medical Record Has Patient been admitted in last 30 No days? Prior Living Arrangements House Household Members spouse Type of transporation used prior to Drives own vehicle admit Independent with ADL's Yes Is patient alert and oriented? Yes Caregiver for Another No Discharge Plan [facility] Physical [facility] Transportation Arrangement Spouse can transport at d/c Referrals Initiated None needed Additional Comment Pending surgery today and PT/ OT recommendations Whiteboard Updated in Patient Room with Yes name and ext. # of Parks Worker Review Status In Process Please Provide Date Initial DC 02/12/22 Assessment Was Performed Next Review Type Continued Stay Review
[2022-02-12] MEDS: LACTATED RINGERS 1,000 ML 42 ML IV ×2 (14:42→19:20)
--- NOTE | 2022-02-12 15:47 | SUR.HOLD ---
Block start time [1307] . Monitoring initiated and maintained throughout procedure. Oxygen and medications given per anesthesiologist. Patient remained stable throughout procedure, no adverse reactions noted. Block end time [1334 ].
--- NOTE | 2022-02-12 16:12 | PM.PN.1 ---
Subjective Subjective Date Patient Seen: 02/12/22 Time Patient Seen: 08:00 Interval history: Pain control is improved. Exam Vital Signs (past 8 hours): - 02/12/22 09:10 02/12/22 15:04 Temperature 98 F Pulse Rate 82 Respiratory Rate 16 Blood Pressure 123/74 Pulse Oximetry 96 Oxygen Delivery Method Room Air Oxygen Flow Rate 0 Narrative Exam Narrative: GEN: no acute distress CV: regular rate and rhythm, no murmurs PULM: clear bilaterally, no wheezes, rhonchi, rales ABD: soft, nontender, nondistended, no organomegaly, normal bowel sounds EXT: warm and well perfused, with no edema, left arm in cast Objective Labs Result Diagrams: 02/11/22 11:52 02/11/22 11:52 [facility] Medical History Heartburn Rotator cuff arthropathy of right shoulder Surgical History History of lumbar surgery Social History household members: spouse Smoking Status: Never smoker alcohol intake: current Assessment & Plan Assessment & Plan narrative: Mr. Aguirre is a 56M with presents after a fall from a ladder found to have a proximal and mid-shaft humeral fracture. 1. Acute mid humeral fracture and comminuted humeral head/neck fracture -ordered for pain medications with IV/oral opiates, also with flexeril for muscle spasm -ordered for nausea medications -appreciate ortho consult -plan for surgery today 2. Back spasms, resolved -CT shows no evidence of spinal compression fracture -pain is lateral to spine, consistent with muscle spasm -flexeril as above 3. Renal cyst -noted on CT scan -follow up with PCP as outpatient CODE: Full Proxy: Nanda Aguirre, I have utilized all available resources to reconcile patients home medications Time Spent With Patient Critical Care time: I spent a total of [] minutes of critical care time on this patient's care today; this time is exclusive of procedural time.
--- NOTE | 2022-02-12 17:15 | P.OP_ITS ---
Operative Date/Time/Diagnoses Date of procedure: 02/12/22 Time of procedure: 17:20 Pre-op diagnosis: left humerus fracture midshaft, proximal humerus fracture Post-op diagnosis: same Procedure & Clinicians Procedure: ORIF left humerus fracture with severely comminuted midshaft fracture and proximal humerus fracture bone grafted with cortical cancellous chips and DBM putty Same procedure as scheduled: Yes Indications: This is a 56-year-old who fell trimming trees and landed on his left shoulder he developed a severely comminuted left humerus fracture as well as a left proximal humerus fracture is brought to the operating room for open reduction internal fixation. It was severely comminuted felt to be grossly unstable. Surgeon: Jackie Alvarado Sk[employer] U[employer] Linings: Kathryn Ahmadi Anesthesia Type: General and Peripheral nerve block Operative Notes Findings: Severely comminuted and grossly unstable left midshaft humerus fracture with severe comminution and fragmentation, left proximal humerus fracture with some displacement and mild retroversion of the humeral head Closure Type: primary Prosthetic devices, grafts, tissues, transplants, or devices: Alvarado and nephew extensive humeral locking plate with multiple locking screws, cortical cancellous chips, DBX PUTTY Estimated Blood Loss (mL): 250 Procedure in detail: Patient is brought to the operating room he underwent the induction of a general anesthesia. A time-out was performed. IV antibiotics were given. His left upper extremity was prepped and draped in standard sterile fashion after carefully positioning him supine with a bump under his shoulder and with a radiolucent arm board at the side. A very extensive incision was made after prepping and draping sterilely. A deltopectoral incision with extension laterally on for an anterior approach to the an anterolateral approach to the elbow was extended distally. This extended down close to the antecubital fossa. Dissection was carried out through skin and subcutaneous tissues. The cephalic vein was meticulously identified and protected throughout the procedure. The deltoid was meticulously mobilized. The cephalic vein was left medially on. Retractor was placed shorter deltopectoral visualization. The. The a small amount of the insertion of the tails of the deltoid was carefully minimal anterior aspect was gently released in order to allow some exposure the humerus. The midshaft fracture was severely comminuted. The biceps was meticulously retracted. I discussed cane as to muscular cutaneous nerve on was gently retracted medially. There was severe tearing of the brachialis and the muscle of the midshaft of the humerus. There was a large hematoma. There was severe comminution of the midshaft of the humerus. It was grossly unstable. It was quite difficult to reduce the fracture. I meticulously attempted to reduce it there was too much comminution to get acceptable stability and for consideration of a possible lag screw. We did try instead provisionally stabilize some of the fragments with a K-wire but it was severely comminuted and the fragments were grossly unstable making anatomic reduction and interfragmentary compression essentially a impossible. The proximal fracture was carefully reduced by longitudinal traction. I then selected a long humeral plate Alvarado and nephew and her 0 are with lateral positioner of the proximal humerus and then of a curvature to extend anteriorly down along the humerus. By it was quite difficult to adequately position the the plate but eventually it was meticulously position with a combination of clamps K-wires and tack pins. Fluoroscopy was used to confirm the reduction in mainly the positioning of the plate. We had several different options and picked on that looked appropriate for the fracture. It was provisionally fixed to the humerus and fluoroscopy was used to confirm the position of the plate and the reduction of the fracture. I specifically looked to see if I could get compression across the severely comminuted fracture and really was not an option. The plate was meticulously fixed fixing it proximally fixing it distally and then fixing it to the severely comminuted fragments. I is a combination of locking screws and some nonlocking screws. A specifically attempted to place the plate as far lateral as possible. It was little worried about retroversion of the humeral head but I was eventually happy with the positioning of the plate and the fixation. He had reasonable quality bone distally in the shaft it was quite comminuted. In the head he had adequate quality bone. Fluoroscopy was used throughout the procedure to confirm the reduction and positioning of the plate and screws. The wound was meticulously irrigated with normal saline. Did not feel that I could get additional fixation with supplemental lag fixation. Meticulous bone grafting was done in the severely comminuted midshaft region including 15 cc of cortical cancellous chips and DBX putty. There was a substantial gap which was meticulously felt. I gently stressed the fracture did appear that there was adequate stability of the fracture with the fixation through gentle range of motion. The wound was closed with some interrupted Vicryl running stitch justin stitches and skin teri. The wound was dressed sterilely. Complications: none Post-operative Condition: stable Disposition: Acute Care Plan for aftercare: FULL-TIME SLING USE UNTIL THERE IS EVIDENCE OF EARLY bony healing, okay to do gentle hand wrist range of motion
--- NOTE | 2022-02-12 17:15 | PM.PREOP ---
Pre-operative Note COVID-19 COVID-19 status: Negative Interval Note History & Physical reviewed/Exam performed by Physician: Yes Changes to H&P: No
[2022-02-12] MEDS: CEFAZOLIN 2 GM/20 ML SYRINGE IV (17:29)
--- NOTE | 2022-02-12 18:13 | SUR.OPER ---
Supine on padded OR bed, head on pillow, arms secured on padded arm boards at <90 degrees abduction, legs uncrossed, safety belt at thigh, tape over blanket over lower legs.
[2022-02-12] MEDS: BUPIVACAINE 0.5% (PF) VIAL 30 ML INJ (21:51)
--- NOTE | 2022-02-12 23:18 | SUR.PHASEI ---
Report called to Laura BENTON. Opportunity for questions given and return phone number at time of report [phone]. Pt returning to rm 211. Pt updated on transfer and is agreeable.
[2022-02-12] MEDS: LACTATED RINGERS 1,000 ML 125 ML IV (23:54)
[2022-02-13] VITALS (11 sets, daily range): BP systolic 109–125; BP diastolic 64–71; PULSE 77–88; RESP 18–19; TEMP 36.6–38; O2SAT 94–99
[2022-02-13] MEDS: OXYCODONE IR 5 MG TABLET PO ×2 (01:08→04:47)
[2022-02-13] MEDS: IBUPROFEN 600 MG TABLET PO ×2 (02:18→08:34)
[2022-02-13] MEDS: CEFAZOLIN 2 GM/20 ML SYRINGE IV (02:19)
[2022-02-13 05:23] LABS: Hematocrit 36.9 % (41-53); Hemoglobin 12.6 g/dL (13.5-17.5); Mean Corpuscular Hemoglobin 31.3 PG (26-34); Mean Corpuscular Volume 91.9 fL (80-100); Platelet Count 179 X10^3/uL (150-400); Red Blood Cell Count 4.02 X10^6/uL (4.5-5.9); Red Cell Distribution Width 12.7 % (11.6-14.8); White Blood Cell Count 8.5 X10^3/uL (4.5-11.0)
--- NOTE | 2022-02-13 06:11 | PC.NURSE ---
Pt voiding via urinal, taking PO without any difficulty (IVF discontinued). Using IS independently. On RA sating in the mid 90's. CMS intact, pt does have some swelling to his finger. adequate pain control with oxycodone.
--- NOTE | 2022-02-13 08:02 | PM.DS.1 ---
History of Present Illness History of Present Illness Date Patient Seen: 02/13/22 Time Patient Seen: 08:02 Chief complaint: fell off ladder Narrative: Operative Date/Time/Diagnoses Date of procedure: 02/12/22 Time of procedure: 17:20 Pre-op diagnosis: left humerus fracture midshaft, proximal humerus fracture Post-op diagnosis: same Procedure & Clinicians Procedure: ORIF left humerus fracture with severely comminuted midshaft fracture and proximal humerus fracture bone grafted with cortical cancellous chips and DBM putty Same procedure as scheduled: Yes Indications: This is a 56-year-old who fell trimming trees and landed on his left shoulder he developed a severely comminuted left humerus fracture as well as a left proximal humerus fracture is brought to the operating room for open reduction internal fixation.? It was severely comminuted felt to be grossly unstable. Surgeon: Jackie Alvarado [employer] Gar[employer] Servicer: Kathryn Ahmadi Anesthesia Type: General and Peripheral nerve block Operative Notes Findings: Severely comminuted and grossly unstable left midshaft humerus fracture with severe comminution and fragmentation, left proximal humerus fracture with some displacement and mild retroversion of the humeral head Closure Type: primary Prosthetic devices, grafts, tissues, transplants, or devices: Alvarado and nephew extensive humeral locking plate with multiple locking screws, cortical cancellous chips, DBX PUTTY Estimated Blood Loss (mL): 250 Discharge Providers Provider Date of admission: 02/11/22 14:27 Discharge Date: 02/13/22 Primary care physician: Johan Rousseau MD Consults: 02/11/22 13:08 Consult to Orthopedic Surgery Stat Comment: Consulting Provider: Jackie Alvarado Reason for consultation: arm fracture Has provider been notified: Yes 02/12/22 23:28 Consult to Discharge Planning Routine Comment: Consult to Occupational Therapy Evaluate & Treat Comment: gentle rom wrist, hand, sling use Physician Instructions: Evaluate and treat Consult to Physical Therapy Evaluate & Treat Comment: Physician Instructions: Evaluate and Treat Consult to Respiratory Therapy Evaluate & Treat Comment: Physician Instructions: Evaluate and treat Discharge provider: Kathryn Ahmadi PA-C Summary Hospital Course Discharge Diagnosis: 1) left humerus fracture midshaft, proximal humerus fracture 2) Acute anemia d/t expected surgical blood loss Exam Vital Signs (past 8 hours): - 02/13/22 00:30 02/13/22 01:30 02/13/22 02:30 Temperature 98.0 F 97.9 F 97.9 F Pulse Rate 80 81 88 Respiratory Rate 18 18 18 Blood Pressure 120/71 117/68 110/69 Pulse Oximetry 98 99 98 02/13/22 04:52 Temperature 98.3 F Pulse Rate 88 Respiratory Rate 18 Blood Pressure 119/64 Pulse Oximetry 98 Oxygen Delivery Method Nasal Cannula Oxygen Flow Rate 0 Objective Labs Result Diagrams: 02/13/22 04:48 02/11/22 11:52 Labs: Laboratory Results - last 24 hr 02/13/22 04:48 WBC 8.5 RBC 4.02 L Hgb 12.6 L Hct 36.9 L MCV 91.9 MCH 31.3 MCHC 34.0 RDW 12.7 Plt Count 179 PFSH Medical History Heartburn Rotator cuff arthropathy of right shoulder Surgical History History of lumbar surgery Social History household members: spouse Smoking Status: Never smoker alcohol intake: current Discharge Plan Discharge Plan Patient Disposition: Home Discharge orders & Medications Prescriptions: New oxycodone 5 mg Tablet 5 mg PO Q3HR PRN (Reason: Pain, Moderate (4-6)) Qty: 1 0RF acetaminophen 325 mg Tablet 975 mg PO TID Qty: 1 0RF aspirin 81 mg Tablet,Delayed Release (Dr/Ec) 81 mg PO BID Qty: 1 0RF Discontinued acetaminophen 325 mg Tablet 325 mg PO Q6H PRN (Reason: Headache) 0RF Label Comments: takes infrequently ibuprofen 600 mg Tablet 600 mg PO Q6H PRN (Reason: Headache) 0RF Label Comments: taked rarely 1-2 times a month Follow up/Referrals: Johan Rousseau DO [Primary Care Provider] - Jackie Alvarado MD [Physician] - 2 Weeks (Follow up in clinic with PA between February 22 and February 26, 2022.) Diet/Activity/Treatments Diet: Diet as Tolerated Activity: Sling at all times. May have off to shower and eat. Ok to do range of motion with wrist and hand, but no significant weight bearing (more than 3 pounds) to upper extremity. Skin/Wound/Dressing Care Report to your healthcare provider any signs of infection, such as:: chills, fever, night sweats, unusual drainage and unusual redness Dressing: Leave Aquacel dressing in place until follow up in office. Call office if it becomes saturated inside. May shower; no bathing or otherwise soaking incision. Visit Report/Discharge Packet Instructions: DI for Open Reduction Internal Fixation Surgery, DI for Prescription Opioid Use Stand Alone Forms: Surgery Discharge Discharge Data Primary Care Provider: Johan Rousseau
[2022-02-13] MEDS: ASPIRIN EC 81 MG TABLET PO (08:36)
[2022-02-13] MEDS: ACETAMINOPHEN 325 MG TABLET 975 MG PO (08:36)
--- NOTE | 2022-02-13 09:36 | OT.IP.EVAL ---
Current Diagnoses Unspecified fracture of upper end of left humerus, initial encounter for closed fracture (02/11/22) Unspecified fracture of shaft of humerus, left arm, initial encounter for closed fracture (02/11/22) Surgery Performed Operation Date: 02/12/22 14:15 Actual Procedures p ORIF Humerus Fracture(Left) - Jackie Alvarado MD Past Medical History (Last Reviewed 02/11/22 @ 19:40 by Jackie Alvarado MD) Heartburn History of lumbar surgery Rotator cuff arthropathy of right shoulder Surgical History (Last Reviewed 02/11/22 @ 19:40 by Jackie Alvarado MD) History of lumbar surgery Occupational Therapy Inpatient Evaluation/Re-Eval M1 PT/OT-IP Prior Functional Status Start: 02/13/22 12:01 Freq: NEEDED Status: Discharge Protocol: Document 02/13/22 10:30 AB (Rec: 02/13/22 12:14 AB [id number]) Medical Review Prior Functional Status Medical History Reviewed Yes Communication able to make needs known Mobility and Gait pt stated that he is independent with all mobilities and ambulation without AD Social History Household Members spouse Living Arrangements House Number of Floors (Floors) 3 or More Floors Number of Stairs To Enter/Railing? 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 Social History Household Members spouse Living Arrangements House Number of Floors (Floors) 3 or More Floors Number of Stairs To Enter/Railing? 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 M2 OT-IP Current Condition Start: 02/13/22 13:42 Freq: Status: Active Protocol: Document 02/13/22 09:05 [facility] (Rec: 02/13/22 15:59 [facility] [id number]) Occupational Therapy Current Condition Current Condition Evaluation Date 02/13/22 Treatment Diagnosis Left Humerus Fx mid shaft, proximal humerus fx , s/p ORIF Diagnosis Onset Date 02/11/22 M3 OT- IP Subjective and Pain Start: 02/13/22 13:42 Freq: Status: Active Protocol: Document 02/13/22 09:05 [facility] (Rec: 02/13/22 15:59 [facility] [id number]) OT- Subjective Occupational Therapy Visit Type Type Initial Evaluation Visit Start Time 09:05 Visit Stop Time 09:36 Total Visit Minutes 31 Occupational Therapy Visit Comments Patient Comments Pt agreed to get up for OT eval. Patient/Caregiver Goals TO go home. OT Pain Assessment Pain When Pain Assessed At Rest Pain Present Pain Present Pain Reported Location left arm Intensity 3 Scale Used Numeric (0 - 10) M4 OT- IP ADL's Start: 02/13/22 13:42 Freq: Status: Active Protocol: Document 02/13/22 09:05 [facility] (Rec: 02/13/22 15:59 [facility] [id number]) OT [id number] Comments OT Self-Feeding Comments Pt needing set-up assist. OT ADL-Grooming General Evaluation Grooming Ability Independent Comments OT Grooming Comments Set-up assist OT ADL-Oral Care General Eval Oral Care Ability Independent Comments Oral Care Comments set-up assist OT ADL-Dressing General Eval Upper Body Dressing Ability Maximum Assistance Lower Body Dressing Ability Maximum Assistance Comments OT Dressing Comments Due to NWB of LUE, pt needing MAXA for all dressing needs at this time. Able to educate pt on sling management and now to amanda/doff clothing by handing his LUE down to get clothing item on. Per pt physician states sling off during showers and sleeping. OT ADL-Toileting Comments OT Toileting Comments Pt not having to go at this time. OT ADL-Bathing Comments OT Bathing Comments Pt a little unsteady as has not been on his feet in 3 days and would be best to have a shower chair for safety. M5 OT- IP IADL's Start: 02/13/22 13:42 Freq: Status: Active Protocol: Document 02/13/22 09:05 [facility] (Rec: 02/13/22 15:59 [facility] [id number]) OT-Instrumental Activities of Daily Living Home Safety Awareness Awareness of Need for Assistance at Home Good Awareness Ability to Problem Solve Emergency Able to Problem Solve Situations Home Safety Comments Pt's to be able to assist him when not at work and his daughter is available ,Sat , and . M6 OT- IP Functional Cognition Start: 02/13/22 13:42 Freq: Status: Active Protocol: Document 02/13/22 09:05 [facility] (Rec: 02/13/22 15:59 [facility] [id number]) Cognitive Factors Limiting Selfcare Function Cognitive Ability Level of Alertness Alert Patient Orientation Name,Age,Birthday,Month,Date, Year,Day of Week,Place, Situation Attention Span Ability Capable of Focused Attention, Capable of Sustained Attention Ability to Follow Commands Able to Follow Multi-Step Commands Cognitive Comments Cognitive Assessment Comments Pt appears intact on OT eval. OT- Vision and Hearing OT- Hearing Assessment OT- Hearing Assessment WFL OT- Vision Assessment Visual Acuity Glasses For Reading M7 OT- IP Mobility and Balance Start: 02/13/22 13:42 Freq: Status: Active Protocol: Document 02/13/22 09:05 [facility] (Rec: 02/13/22 15:59 [facility] [id number]) OT- Bed Mobility Assessment Rolling Level of Assistance Standby Assistance Supine to Sit Supine to Sit Assist Standby Assistance OT-Transfer Assessment Sit to and From Stand Sit to and from Stand Contact Guard Assistance, Minimal Assistance Transfers Transfer Ability Standby Assistance,Contact Guard Assistance Technique Transfer Destination Bed,Chair Transfer Technique Stand Step Pivot Devices Transfer Assistive Devices None,Gait Belt,Straight Cane Comments Mobility Comments Increased time to get up and use of momentum to get to the edge of the bed. NATASHA to stand and with use of SPC SBA. Pt a bit unsteady on his feet without AD and needing CGA, with use of SPC SBA. OT- Balance Assessment Sitting Balance and Reactions Static Sitting Balance Ability Good Dynamic Sitting Balance Ability Good Standing Balance and Reactions Static Standing Balance Ability Fair Dynamic Standing Balance Ability Fair M8 OT- IP Objective Assessments Start: 02/13/22 13:42 Freq: Status: Active Protocol: Document 02/13/22 09:05 [facility] (Rec: 02/13/22 15:59 [facility] [id number]) OT Gross Range of Motion Upper Extremity Range of Motion Assessment Left Impaired OT Sensation Assessment Edema Edema Comments Slight swelling of left hand but able to move his left hand wrist and fingers appropriately. M9 OT- IP Assessment and Plan Start: 02/13/22 13:42 Freq: Status: Active Protocol: Document 02/13/22 09:05 [facility] (Rec: 02/13/22 15:59 [facility] [id number]) OT Summary Assessment and Plan Potential Rehabilitation Potential Good Analytic Complexity at Evaluation Low Summary OT Impairments Pain,Range of Motion,Strength, Balance,Functional Mobility, Self-Feeding,Grooming,Dressing ,Toileting,Bathing,Toilet Transfers,Shower Transfers Progress Towards Goals Slow Progress due to Pain,Slow Progress due to Activity Tolerance Goals Self-Feeding Goal Independent Grooming Goal Independent Dressing Goal Minimal Assistance Toileting Goal Independent Bathing Goal Minimal Assistance Toilet Transfer Goal Independent Shower Transfer Goal Independent Days to Meet Goals 5 Frequency of Treatment Frequency Of Treatment Once a Day Treatment Plan OT Treatment Plan ADL Training,Functional Mobility,Patient/Family Education,Discharge Planning Discharge Recommendations OT Discharge Recommendations Home with 06/05 Assist Available Transportation Needs at Discharge Private Vehicle
--- NOTE | 2022-02-13 10:30 | PT.IIE ---
Current Diagnoses Unspecified fracture of upper end of left humerus, initial encounter for closed fracture (02/11/22) Unspecified fracture of shaft of humerus, left arm, initial encounter for closed fracture (02/11/22) Surgery Performed Operation Date: 02/12/22 14:15 Actual Procedures p ORIF Humerus Fracture(Left) - Jackie Alvarado MD Medical History (Last Reviewed 02/11/22 @ 19:40 by Jackie Alvarado MD) Heartburn Rotator cuff arthropathy of right shoulder Physical Therapy Inpatient Evaluation/Re-Eval M1 PT/OT-IP Prior Functional Status Start: 02/13/22 12:01 Freq: NEEDED Status: Discharge Protocol: Document 02/13/22 10:30 AB (Rec: 02/13/22 12:14 AB [id number]) Medical Review Prior Functional Status Medical History Reviewed Yes Communication able to make needs known Mobility and Gait pt stated that he is independent with all mobilities and ambulation without AD Social History Household Members spouse Living Arrangements House Number of Floors (Floors) 3 or More Floors Number of Stairs To Enter/Railing? 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 PT-IP Current Condition Start: 02/13/22 12:01 Freq: NEEDED Status: Discharge Protocol: Document 02/13/22 10:30 AB (Rec: 02/13/22 12:14 AB [id number]) Physical Therapy Current Condition Current Condition Evaluation Date 02/13/22 Treatment Diagnosis s/p fall; L prox humeral fx s/ p ORIF; difficulty in walking Onset Date 02/11/22 M3 PT-IP Subjective Start: 02/13/22 12:01 Freq: NEEDED Status: Discharge Protocol: Document 02/13/22 10:30 AB (Rec: 02/13/22 12:14 AB [id number]) Subjective Physical Therapy Visit Type Type Initial Evaluation Visit Start Time 10:30 Visit Stop Time 11:00 Total Visit Minutes 30 Number of ACADEMIC ASSOCIATE Visits 0 Physical Therapy Visit Comments Patient Comments agreeable to so PT Therapy Pain Assessment Pain When Pain Assessed At Rest Pain Present Pain Present Pain Reported Location left arm Intensity 2 Scale Used Numeric (0 - 10) M4 PT-IP Mobility and Gait Start: 02/13/22 12:01 Freq: NEEDED Status: Discharge Protocol: Document 02/13/22 10:30 AB (Rec: 02/13/22 12:14 AB [id number]) PT-Bed Mobility Assessment Supine to Sit Supine to Sit Standby Assistance Sit to Supine Sit to Supine Standby Assistance PT-Transfer Assessment Sit to and From Stand Sit to and from Stand Standby Assistance Equipment Transfer Assistive Device None,Gait Belt Orthotic/Prosthetic Devices or Brace: Yes Transfers Transfer Destination Bed Transfer Technique ambulated Transfer Ability Level of Assist Standby Assistance Comments Mobility Comments pt sitting on chair. spouse in room educated pt on shoulder precautions. educated spouse on sling management. caregiver training conducted for sling management and spouse was able to manage sling on pt. pt completed sit to stand SBA and ambulated in room ~ 15 ft SBA. presents with waddling gait with increase LE ER R>L. ambulated to the bed and completed sit< >supine SBA. educated pt and spouse regarding bed positioning. pt ambulated in the hallway without AD SBA towards the stairs and completed up/down steps using R rail ascending SBA step through pattern. completed x 2. also completed without use of rail SBA step to pattern. pt ambulated back to his room without AD SBA. pt agreed to stay up on the chair. pt and spouse without any other concerns. Gait Assessment Gait Gait Assistance Required: Standby Assistance Distance (Feet) 150 Able to Maintain Weight Bearing Status Yes During Gait Assistive Devices Assistive Device None,Gait Belt Orthotic/Prosthetic Devices or Brace: Yes Gait Deviations General Gait Pattern Decreased Stride Length, Decreased Feet Clearance,Wide Based Gait Factors Limiting Gait Function Factors Limiting Gait Function Decreased Activity Tolerance, Decreased Strength,Limited Range of Motion,Pain,Poor Balance Stair Climbing Assessment Evaluation Level of Assist On Stairs Standby Assistance Devices Stair Climbing Assistive Devices None,Right Railing Technique/Endurance Stair Climbing Direction Ascend and Descend Stair Climbing Technique Step Over Step,Step to Step Comments Stair Climbing Comments pls refer to mobility level for details PT-Balance Assessment Sitting Balance and Reactions Static Sitting Balance Ability Normal Dynamic Sitting Balance Ability Normal Standing Balance and Reactions Static Standing Balance Ability Good Dynamic Standing Balance Ability Good Device Used without AD M5 PT-IP Objective Assessments Start: 02/13/22 12:01 Freq: NEEDED Status: Discharge Protocol: Document 02/13/22 10:30 AB (Rec: 02/13/22 12:14 AB [id number]) Orientation Orientation/Cognition Level of Alertness Alert Orientation Name,Age,Birthday,Month,Date, Year,Day of Week,Place, Situation Language Function Ability No Deficits Noted Safety Awareness Understands Safety Issues Memory Description No Deficits Noted Gross Range of Motion Lower Extremity ROM Assessment Within Functional Limits Strength Lower Extremity Strength Assessment Within Functional Limits Muscle Tone Muscle Tone WNL Yes M6 PT-IP Treatment Start: 02/13/22 12:01 Freq: NEEDED Status: Discharge Protocol: Document 02/13/22 10:30 AB (Rec: 02/13/22 12:14 AB [id number]) Physical Therapy Treatment Education Education Provided Precautions,Weight Bearing Status,Safety Brace Education [place],Patient M7 PT-IP Assessment and Plan Start: 02/13/22 12:01 Freq: NEEDED Status: Discharge Protocol: Document 02/13/22 10:30 AB (Rec: 02/13/22 12:14 AB [id number]) PT Summary Assessment and Plan Potential Rehabilitation Potential Good Status of Condition at Evaluation Stable Summary Impairments Pain,ROM,Strength,Balance, Coordination,Sensation,Tone, Cognition,Bed Mobility, Transfers,Gait,Activity Tolerance Assessment Summary pt requiring SBA with mobility . caregiver training conducted and spouse able to assist pt. pt plans to go home today. pt may go home when medically stable. Goals Bed Mobility Goal Independent Transfer Goal Independent Gait Goal Independent Gait Distance 300 Other Goals up/down 1 step without AD I up/down 7 steps R rail ascending I Days to Meet Goals 3 Frequency of Treatment Frequency Of Treatment Twice a Day Treatment Plan Physical Therapy Treatment Plan Bed Mobility Training,Transfer Training,Gait Training, Therapeutic Exercise,Balance Retraining,Post Op Education, Discharge Planning,Hot or Cold Pack,Neuromuscular Re-ed, Coordination Retraining,Manual Therapy Precautions Shoulder Precautions Sling Other Precautions per Dr. Alvarado's note: may do gentle hand wrist ROM Weight Bearing Status Weight Bearing Status Non-Weight Bearing Allowed Weight Bearing Amount (enter % LUE NWB or #) (%) Recommendations To Nursing Amount of Assist Needed Standby Assistance Discharge Recommendations PT Discharge Recommendations Home with Assistance, Outpatient PT Transportation Needs at Discharge Private Vehicle
--- NOTE | 2022-02-13 10:32 | PC.NURSE ---
Pt is A&O x3. Admitted 02/11 with L humerus fracture, ORIF performed yesterday. Pt tolerating well, arm is dressed, wrapped, and in a sling. Fingers to the left hand have 1+ edema but pt has good sensation and circulation. Reports tolerable levels of pain. Pt had a temperature of 100.4 this morning, medicated with tylenol and ibuprofen, temp is now 97.9. Pt states he has not had a bowel movement since 02/10 but has active bowel sounds and is passing flatus. Pt got up to his chair with OT, tolerated well and plans to discharge home later today.
--- NOTE | 2022-02-13 10:48 | P.DS_ITS ---
History of Present Illness History of Present Illness Date Patient Seen: 02/13/22 Chief complaint: fell off ladder Narrative: Per Dr. Bhatti, Mr. Aguirre is a 56M with no significant PMH who presents after a fall from a ladder. He hurt his left arm. He did not hit his head or lose consciousness. He was able to stand and walk back to the house. He had some hip pain that has resolved. He also has mid back spasms located just to the right of the spine. In the ED workup was done, vitals notable for elevated blood pressure. He was placed in c-collar. Labs notable for WBC 8.5, hgb 15.3, creatinine 1.14. Imaging on his left arm showed two fractures of his humerus including proximal and mid humerus displaced fracture. CT abd/pelvis showed no acute process. CT head and CT c-spine showed no acute process. C-collar was removed. Orthopedic surgery was consulted. He was admitted for further treatment. PMH: none Family history: father with cirrhosis, mother brain cancer Discharge Providers Provider Date of admission: 02/11/22 14:27 Discharge Date: 02/13/22 Primary care physician: Johan Rousseau MD Consults: 02/11/22 13:08 Consult to Orthopedic Surgery Stat Comment: Consulting Provider: Jackie Alvarado Reason for consultation: arm fracture Has provider been notified: Yes 02/12/22 23:28 Consult to Discharge Planning Routine Comment: Consult to Occupational Therapy Evaluate & Treat Comment: gentle rom wrist, hand, sling use Physician Instructions: Evaluate and treat Consult to Physical Therapy Evaluate & Treat Comment: Physician Instructions: Evaluate and Treat Consult to Respiratory Therapy Evaluate & Treat Comment: Physician Instructions: Evaluate and treat Discharge provider: Rajesh Duran DO Summary Hospital Course Discharge Diagnosis: 1. Acute mid humeral fracture and comminuted humeral head/neck fracture 2. Back spasms, resolved 3. Renal cyst Hospital Course: Mr. Aguirre is a 56M with presents after a fall from a ladder found to have a proximal and mid-shaft humeral fracture. He underwent surgical intervention with Orthopedic surgery for repair. He had an uncomplicated course and was discharged home on oral pain medications. He was noted to have an incidental renal cyst on imaging, and I recommend the follow-up with his PCP for further management. Time Spent with Patient Time spent: Less than 30 minutes Exam Vital Signs (past 8 hours): - 05/03/22 04:52 02/13/22 07:00 02/13/22 08:34 Temperature 98.3 F 100.4 F H 100.4 F H Pulse Rate 88 82 Respiratory Rate 18 19 Blood Pressure 119/64 125/71 Pulse Oximetry 98 96 02/13/22 08:36 02/13/22 09:43 02/13/22 09:53 Temperature 100.4 F H 97.9 F Pulse Rate 81 Respiratory Rate 18 Blood Pressure Pulse Oximetry 96 Oxygen Delivery Method Room Air Oxygen Flow Rate 0 Narrative Exam Narrative: GEN: no acute distress CV: regular rate and rhythm, no murmurs PULM: clear bilaterally, no wheezes, rhonchi, rales ABD: soft, nontender, nondistended, no organomegaly, normal bowel sounds EXT: warm and well perfused, with no edema, left arm in sling Objective Labs Result Diagrams: 02/13/22 04:48 02/11/22 11:52 Labs: Laboratory Results - last 24 hr 02/13/22 04:48 WBC 8.5 RBC 4.02 L Hgb 12.6 L Hct 36.9 L MCV 91.9 MCH 31.3 MCHC 34.0 RDW 12.7 Plt Count 179 PFSH Medical History Heartburn Rotator cuff arthropathy of right shoulder Surgical History History of lumbar surgery Social History household members: spouse Smoking Status: Never smoker alcohol intake: current Discharge Plan Discharge Plan Patient Disposition: Home Provider Discharge Comment: You were admitted to the hospital after a fall suffering a broken arm. This was repaired by orthopedics. Please follow up as an outpatient. Discharge orders & Medications Prescriptions: New acetaminophen 325 mg Tablet 975 mg PO TID Qty: 1 0RF aspirin 81 mg Tablet,Delayed Release (Dr/Ec) 81 mg PO BID Qty: 1 0RF oxycodone 5 mg Tablet 5 mg PO Q3HR PRN (Reason: Pain, Moderate (4-6)) Qty: 1 0RF Discontinued acetaminophen 325 mg Tablet 325 mg PO Q6H PRN (Reason: Headache) 0RF Label Comments: takes infrequently ibuprofen 600 mg Tablet 600 mg PO Q6H PRN (Reason: Headache) 0RF Label Comments: taked rarely 1-2 times a month Follow up/Referrals: Johan Rousseau DO [Primary Care Provider] - Jackie Alvarado MD [Physician] - 2 Weeks (Follow up in clinic with PA between February 22 and February 26, 2022.) Diet/Activity/Treatments Diet: Diet as Tolerated Activity: Sling at all times. May have off to shower and eat. Ok to do range of motion with wrist and hand, but no significant weight bearing (more than 3 pounds) to upper extremity. Skin/Wound/Dressing Care Report to your healthcare provider any signs of infection, such as:: chills, fever, night sweats, unusual drainage and unusual redness Dressing: Leave Aquacel dressing in place until follow up in office. Call office if it becomes saturated inside. May shower; no bathing or otherwise soak ing incision. Visit Report/Discharge Packet Instructions: DI for Open Reduction Internal Fixation Surgery, DI for Prescription Opioid Use, Oxycodone Stand Alone Forms: Surgery Discharge Discharge Data Primary Care Provider: Johan Rousseau
--- NOTE | 2022-02-13 11:28 | PC.NURSE ---
Assess-Patients dressing to his L.shoulder with aquacel. He worked with pt and ot and did well. Patient given tylenol and ibuprofen for pain this am and he states that this helped his discomfort. Sling in place and iv taken out. Patient just discharged to home.
== END 2022-02-13 11:15 | disposition home or self-care (01) | DRG 494 ==
LOC: ED 13:25 → AC 14:28
PROVIDERS: Orthopaedic Surgery; Admitting Provider Internal Medicine; Emergency Provider Emergency Medicine; PCP Student in an Organized Health Care Education/Training Program; Referring Provider Emergency Medicine; Visit Provider Internal Medicine
PROC: 0PSD04Z Reposition Left Humeral Head with Internal Fixation Device, Open Approach (ICD-10-PCS; principal; 2022-02-12 14:15)
DX: S42.352A Displaced comminuted fracture of shaft of humerus, left arm, initial encounter for closed fracture (principal); S42.212A Unspecified displaced fracture of surgical neck of left humerus, initial encounter for closed fracture; M62.830 Muscle spasm of back; W11.XXXA Fall on and from ladder, initial encounter; Y93.H2 Activity, gardening and landscaping; Z20.822 Contact with and (suspected) exposure to COVID-19
CPT/HCPCS: 36415; 64450; 70450; 71260; 72125; 73030; 73060; 73200; 74177; 80048; 83690; 85025; 85027; 87635; 94760; 96374; 96375; 96376; 97161; 97165; 97535; 99285; 99291; C9803; J0690; J1100; J1170; J2250; J2270; J2405; J2704; J3010; Q9967

== ENCOUNTER → 2023-12-01 07:02 | Outpatient (CLI) | payer OTHER, SELFPAY ==
[2022-02-11 15:40] VITALS: BMI 30.8
--- NOTE | 2023-12-01 | DI.MRI.S_ITS ---
PROCEDURE: MR SHOULDER LT WO CON INDICATIONS: LEFT SHOULDER PAIN TECHNIQUE: Noncontrast oblique coronal T2 fast spin echo with fat saturation, oblique sagittal T1 spin echo and T2 fast spin echo with fat saturation, axial T1 spin echo and T2 fast spin echo with fat saturation through the shoulder. COMPARISON: [facility], CR, XR HUMERUS LEFT, 06/20/2022, 8:34. [facility], CR, XR HUMERUS LEFT, 05/23/2022, 8:34. [facility], CR, XR HUMERUS LEFT, 04/25/2022, 9:32. [facility], CR, XR HUMERUS LEFT, 03/28/2022, 8:38. [facility], CR, XR SHOULDER 2+ VIEWS LEFT, 02/23/2022, 9:43. [facility], CR, XR HUMERUS LT 2V, 02/12/2022, 22:29. CT, CT UE LT WO CON, 02/11/2022, 13:23. [facility], CR, XR SHOULDER LT MIN 2V, 02/11/2022, 12:27. [facility], CR, XR HUMERUS LT 2V, 02/12/2022, 19:08. [facility], CR, XR HUMERUS LEFT, 07/25/2022, 8:31. [facility], CR, XR HUMERUS LEFT, 10/24/2022, 15:22. FINDINGS: Image quality: Limited examination due to metallic artifacts from surgical plate and multiple surgical screws. Rotator cuff: There is mild supraspinatus, infraspinatus, and subscapularis tendinosis. No high-grade tendon tear. No tendon retraction. Sagittal images demonstrate no rotator cuff muscle atrophy. Bones and bursae: Postsurgical changes of No bone marrow contusions or fractures. There is mild acromioclavicular degeneration and moderate glenohumeral joint degeneration. The acromion demonstrates conventional anatomy, without an os acromiale. Trace glenohumeral joint effusion. Capsule and soft tissues: There is degenerative fraying of the posterior labrum. There is mild tendinosis of the intra-articular segment of the long head of the biceps tendon demonstrates normal location and morphology. The rotator interval appears normal, without fibrosis. The coracohumeral ligament is normal in thickness. Multiple borderline sized axillary lymph nodes are noted measuring up to 1 cm in short axis, most likely reactive. IMPRESSION: 1. Limited examination due to metallic artifacts from surgical plate and multiple surgical screws. 2. There is mild supraspinatus, infraspinatus and subscapularis tendinosis. No high-grade tendon tear. No tendon retraction or rotator cuff muscle atrophy. 3. Mild tendinosis of the long head of the biceps. 4. Degenerative fraying of the posterior labrum. 5. Moderate glenohumeral joint arthrosis and mild acromioclavicular joint arthrosis. 6. Borderline sized left axillary lymph nodes are noted, likely reactive. Recommend clinical follow-up. Dictated by: Gordon Myers M.D. on 12/02/2023 at 21:43 Approved by: Gordon Myers M.D. on 12/03/2023 at 9:16
== END ==
PROVIDERS: PCP Nurse Practitioner Family; Referring Provider Nurse Practitioner Family; Visit Provider Nurse Practitioner Family
DX: M19.012 Primary osteoarthritis, left shoulder (principal); M25.512 Pain in left shoulder
CPT/HCPCS: 73221

== ENCOUNTER 2024-03-12 10:16 | Day surgery (SDC) | payer OTHER, SELFPAY ==
[2022-02-11 15:40] VITALS: BMI 30.8
[2024-03-03 15:08] VITALS: BMI 29.7
[2024-03-12] VITALS (10 sets, daily range): BP systolic 103–131; BP diastolic 73–89; PULSE 54–92; RESP 10–18; TEMP 36.1–36.4; O2SAT 93–99; BMI 29.7
--- NOTE | 2024-03-12 | DI.RAD.S_ITS ---
PROCEDURE: XR SHOULDER LT MIN 2V INDICATIONS: orif humerus left revision TECHNIQUE: 2 views of the shoulder were acquired. COMPARISON: [facility], CT, CT UPPER EXTREMITY LEFT WITHOUT CONTRAST, 12/27/2023, 15:02. [facility], CR, XR SHOULDER LT MIN 2V, 02/11/2022, 12:27. FINDINGS: Intraoperative fixation revision of comminuted left humeral shaft fracture. There is relatively good anatomic alignment and hardware is intact. IMPRESSION: Intraoperative humeral fixation revision. Dictated by: Nhi Pace M.D. on 03/13/2024 at 11:44 Approved by: Nhi Pace M.D. on 03/13/2024 at 11:45
[2024-03-12] MEDS: LACTATED RINGERS 1,000 ML 42 ML IV ×2 (12:26→16:58)
--- NOTE | 2024-03-12 12:57 | PM.HP.1 ---
History of Present Illness History of Present Illness Date Patient Seen: 03/12/24 Time Patient Seen: 12:57 Date of Onset of Symptoms: 03/12/24 Chief complaint: SDC Narrative: This is a 58-year-old male with a left midshaft humerus nonunion. He has now failed conservative management and still has continued pain. No changes in his symptoms since I last saw him in clinic. No recent nausea, vomiting, diarrhea, fevers, chills or any other constitutional symptoms. [facility] Medical History (Updated 03/03/24 @ 15:12 by Yarelis Brunson RN) Anesthesia complication Rotator cuff arthropathy of right shoulder Heartburn Surgical History (Updated 03/03/24 @ 15:11 by Yarelis Brunson RN) History of open reduction and internal fixation (ORIF) procedure (02/11/22) History of lumbar surgery Social History household members: spouse Smoking Status: Never smoker alcohol intake: current Meds Home Medications and Allergies Home Medications Medication Instructions Recorded Confirmed Type acetaminophen 325 mg tablet 975 mg (3 x 325 mg) PO TID #1 tab 02/13/22 03/12/24 Rx oxycodone 5 mg tablet 5 mg PO Q3HR PRN Pain, Moderate 02/13/22 03/12/24 Rx (4-6) #1 tab Allergies Allergy/AdvReac Type Severity Reaction Status Date / Time No Known Drug Allergies Allergy Verified 03/12/24 12:11 Review of Systems Review of Systems ROS: Yes All systems reviewed with the patient and are negative except as otherwise documented Exam Vital Signs (past 8 hours): - 03/12/24 12:13 Temperature 97.6 F Pulse Rate 54 L Respiratory Rate 18 Blood Pressure 113/75 Pulse Oximetry 99 Oxygen Delivery Method Room Air Oxygen Delivery Method Room Air Narrative Exam Narrative: HEENT: Head atraumatic eyes anicteric moist mucous membranes Cardiovascular: Palpable peripheral pulses extremities are warm and well perfused Respiratory: Breathing comfortably on room air Psychiatric: Appropriate mood and affect Neuro: No acute deficits Musculoskeletal: Numbness in the lateral antebrachial cutaneous nerve, branch of the radial nerve. He does have a positive Tinel's over the radial nerve in the distal arm anterior to the lateral epicondyle. Pain with forward elevation and external rotation. Assessment & Plan Assessment & Plan narrative: Assessment: Left humerus shaft nonunion Plan: Removal of hardware, nonunion takedown and ORIF
[2024-03-12] MEDS: CEFAZOLIN 2 GM/100 ML PREMIX 100 ML IV (13:50)
--- NOTE | 2024-03-12 14:03 | SUR.OPER ---
Beach chair with Maquet shoulder positioner. Lower body on padded OR bed. Head in foam padded head cradle, secured with straps. Non-operative arm padded and secured over abdomen with paper tape, Pillow under knees. Safety belt at thigh. Cloth tape over blanket over lower legs.
[2024-03-12] MEDS: ACETAMINOPHEN IV 1,000 MG/100 ML VIAL 400 MG IV (14:05)
[2024-03-12] MEDS: BUPIVACAINE 0.25% (PF) 30 ML, EPINEPHrine 0.15 MG INJ (14:15)
[2024-03-12] MEDS: ONDANSETRON 4 MG/2 ML INJ IV (18:05)
--- NOTE | 2024-03-12 21:23 | P.OP_ITS ---
Operative Date/Time/Diagnoses Date of procedure: 03/12/24 Time of procedure: 21:23 Pre-op diagnosis: left humerus nonunion Post-op diagnosis: same Procedure & Clinicians Procedure: Left shoulder removal of hardware ORIF Left humerus nonunion Same procedure as scheduled: Yes Indications: Indications: This is a 58-year-old male with a left humerus nonunion confirmed on CT from surgery that was performed 2 years ago for a multi part proximal humerus fracture and shaft fracture.? He has failed conservative management and still has fairly significant pain and dysfunction.? 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 His left upper extremity was examined and marked with my initials.? After discussion with patient he wished go forth with surgery.? A block was performed by anesthesia, interscalene.? He was then brought back to the operating room and placed into the beachchair position after smooth induction of anesthesia.? C arm was positioned in place and ensure that we were able to get good images.? The left upper extremity was then prepped and draped in the standard sterile fashion a surgical timeout was performed and my initials were again confirmed on the left upper extremity and appropriate drying time was observed.? All bony prominences were padded appropriately.? He received IV antibiotics and 1 g of TXA. I began with an approach to the previous incision which is a curvilinear incision starting at the coracoid going through an aggregate anterior approach to the humerus.? Dissection was taken down, the cephalic vein was encountered and was unfortunately torn and was tied off.? The deltopectoral interval was developed and a Brown retractor was placed underneath the deltoid after adhesions were addressed.? This exposed the plate and screws were begun to be removed.? Dissection was taken along the plate down to the level of the brachialis, retracting the biceps and neurovascular bundle medial.? The brachialis which was previously split was again split through the scar tissue.? Anatomic ossification was removed.? All final screws were removed noting 3 of them are broken and were left inside the bone. The fracture site was then addressed.? There was a small amount of motion noted.? Using an osteotome and fluoroscopy, a fresh break was created.? Rongeur was used on the edges as well as a high-speed bur to decorticate the surrounding bone.? A combination of cancellous bone chips and DBM was then placed in and around the fracture site.? A small frag LCDC plate was selected and placed on the medial side of the humerus over the fracture site, we only filled 1 side left the other proximal 3 holes for final fixation.? A large frag 4.5 mm dynamic compression plate was then selected and fashioned to fit the curvature of the humerus.? This was then placed and 3 distal screws were placed. ?3 proximal screws were then all placed in pression mode sequentially loosening and tightening for maximum compression.? Last I filled the remaining screws for the medial LCDC plate which was orthogonal to the large frag plate. The deep layer was then closed with running Ethibond.? Once this was closed a thorough irrigation was performed with dilute Betadine, saline and H2O2.? This was not performed in the deep layer as we did not want to washout our graft.? The remaining layers were closed with Vicryl and the skin was closed with teri.? A large Aquacel dressing was then placed.? Patient was woken from anesthesia without any complications and transported to recovery in good condition. Post-operative Plan for aftercare: Postoperative instructions: Sling for comfort only for the first 2 weeks then range of motion as tolerated.? Elbow and wrist range of motion highly encouraged from day 1.? Aquacel dressing to remain on for 2 weeks.
== END 2024-03-12 19:00 | disposition home or self-care (01) ==
PROVIDERS: PCP Nurse Practitioner Family; Referring Provider Orthopaedic Surgery; Visit Provider Orthopaedic Surgery
PROC: (CPT 24430; principal; 2024-03-12 11:45)
DX: S42.322K Displaced transverse fracture of shaft of humerus, left arm, subsequent encounter for fracture with nonunion (principal); G89.18 Other acute postprocedural pain
CPT/HCPCS: 24430; 20680; 64450; 73030; 76000; C1713; J0136; J0171; J0690; J1100; J2405; J2704; J3010